=== PATIENT | male | born 1955 | race Caucasian/White ===

== ENCOUNTER 2019-12-22 00:49 | Outpatient (CLI) | payer BC, SELFPAY ==
[2019-12-22 17:37] LABS: SARS-CoV-2 RNA PCR Negative
== END 2019-12-22 00:50 | disposition home or self-care (01) ==
LOC: ANHCOVIDDT 00:49
PROVIDERS: PCP Family Medicine; Visit Provider Internal Medicine Gastroenterology
DX: Z01.812 Encounter for preprocedural laboratory examination (principal); Z20.828 Contact with and (suspected) exposure to other viral communicable diseases
CPT/HCPCS: 87635; C9803; U0003

== ENCOUNTER 2019-12-25 00:37 | Day surgery (SDC) | payer BC, SELFPAY ==
[2019-12-18 15:44] VITALS: BMI 32.3
[2019-12-25 07:51] VITALS: BP 149/77; PULSE 70; RESP 24; TEMP 37; O2SAT 98; BMI 32.2
--- NOTE | 2019-12-25 08:05 | WPDANESEPPF ---
Anes - Initial Pre Proc Eval Procedure: Operation Date: 12/25/19 09:00 Proposed Procedures p Esophagogastroduodenoscopy & Screening Colonoscopy - Usman Cannon MD Date/Time: 12/25/19 08:05 Surgeon: Usman Cannon MD Pre Op Diagnosis: GERD, Neoplam Screening Patient Data Age: 64 Gender: M Height: 5 ft 11 in Weight: 104.9 kg Last Vital Signs Temp 37.0 C 12/25/19 07:51 Pulse 70 12/25/19 07:51 Resp 24 H 12/25/19 07:51 BP 149/77 H 12/25/19 07:51 Pulse Ox 98 12/25/19 07:51 Allergies Allergy/AdvReac Type Severity Reaction Status Date / Time levofloxacin Allergy Severe Other Verified 12/25/19 07:49 Penicillins Allergy Severe Swelling Verified 12/25/19 07:49 of Lip/Tongue/Throat tetracycline Allergy Unknown Unknown Verified 12/25/19 07:49 sulfamethoxazole AdvReac Intermediate Abdominal Verified 12/25/19 07:49 [From Pain, Sulfamethoxazole-Trimethoprim] flushing trimethoprim AdvReac Intermediate Abdominal Verified 12/25/19 07:49 [From Pain, Sulfamethoxazole-Trimethoprim] flushing Home Medications Medication Instructions Recorded Confirmed Type albuterol sulfate 90 mcg/actuation 2 inhalation INHALATION Q4-6H PRN 08/06/19 12/19/19 History breath activated powder inhaler bupropion HCl 150 mg 24 hr tablet, 150 mg PO QAM #90 tablet 10/22/19 12/19/19 Rx extended release lisinopril 20 0.5 tablet PO DAILY 11/21/19 12/19/19 History mg-hydrochlorothiazide 25 mg tablet mirabegron 25 mg tablet,extended 25 mg PO DAILY 11/21/19 12/19/19 History release 24 hr peg 3350-electrolytes 236 240 ml PO Q10M #4000 ml 12/11/19 12/19/19 Rx gram-22.74 gram-6.74 gram-5.86 gram solution pantoprazole 40 mg tablet,delayed 40 mg PO QAM #30 tablet 12/19/19 12/19/19 Rx release Patient hx anesthesia problems: none Family hx anesthesia problems: none PMFSH Past Medical History Medical History Colon cancer screening Constipation Dyslipidemia Environmental allergies Epigastric pain Essential (primary) hypertension GERD without esophagitis History of prediabetes Unspecified osteoarthritis, unspecified site Weight loss Surgical History Surgical History No pertinent past surgical history Family History Family History Father Family history of lung cancer Mother Family history of malignant neoplasm of esophagus Social History Social History Smoking status: Never smoker Second hand tobacco smoke exposure: No Alcohol intake: former Substance use: never Substance use type: does not use Living arrangements: with family Gender identity (if verbalized by the patient): Male Spiritual care concerns: No Anes - Eval Final PreProcedure Day of Procedure 12/25/19 08:05 Patient weight: obese Heart: regular rate and rhythm Lungs: clear to auscultation Airway: Mallampati scale class II Neurological: alert and oriented Last oral intake: >/= 8 hours ASA classification: III Emergent: no Anesthetic plan: proceed Anesthesia type and monitoring: general GIVS and standard monitoring Informed Consent: The patient's anesthetic plan and its attendant risks and benefits were discussed with the patient/family/POA. Questions were solicited and answers provided to the satisfaction of the patient/family/POA.
[2019-12-25] MEDS: LACTATED RINGERS 1,000 ML 150 ML IV CONT (08:07)
--- NOTE | 2019-12-25 08:48 | WPDHPUPDATE1 ---
History and Physical Update Update Date/Time: 12/25/19 08:48 History and Physical has been reviewed, including an updated exam of the patient. There are NO changes in the patient's condition. Risks, benefits, and alternatives have been discussed and questions answered. Patient agrees to proceed with procedure.
[2019-12-25 09:44] VITALS: BP 125/71; PULSE 65; RESP 17; O2SAT 100
[2019-12-25 09:54] VITALS: BP 136/89; PULSE 68; RESP 17; O2SAT 100
[2019-12-25 10:04] VITALS: BP 142/70; PULSE 65; RESP 23; O2SAT 100
== END 2019-12-25 10:20 | disposition home or self-care (01) ==
PROVIDERS: PCP Family Medicine; Visit Provider Internal Medicine Gastroenterology
PROC: 0DJ08ZZ Inspection of Upper Intestinal Tract, Via Natural or Artificial Opening Endoscopic (ICD-10-PCS; CPT 43235; principal; 2019-12-25 09:00)
DX: K59.00 Constipation, unspecified (principal); R63.4 Abnormal weight loss; K57.30 Diverticulosis of large intestine without perforation or abscess without bleeding; D12.2 Benign neoplasm of ascending colon; D12.3 Benign neoplasm of transverse colon; D12.0 Benign neoplasm of cecum; K64.8 Other hemorrhoids; K21.9 Gastro-esophageal reflux disease without esophagitis; R10.13 Epigastric pain; I10 Essential (primary) hypertension; E78.5 Hyperlipidemia, unspecified; M19.90 Unspecified osteoarthritis, unspecified site; E66.9 Obesity, unspecified; Z68.32 Body mass index [BMI] 32.0-32.9, adult
CPT/HCPCS: 45385; 43239; 88305; J2704; J7120

== ENCOUNTER 2019-12-29 08:38 | Outpatient (CLI) | payer BC, SELFPAY ==
[2019-12-29 08:57] LABS: Hematocrit 37.3 % (42.0-52.0); Hemoglobin 12.5 g/dL (14.0-18.0); Mean Corpuscular HGB Conc 33.5 g/dl (32-36); Mean Corpuscular Hemoglobin 30.4 pg (26-34); Mean Corpuscular Volume 90.8 fl (80-100); Mean Platelet Volume 8.8 fl (7.4-10.4); Platelet Count Result 192 k/mm3 (150-375); Red Blood Count 4.11 M/mm3 (4.6-6.20); Red Cell Distribution Width 12.8 % (11.5-14.5); White Blood Count 8.8 K/mm3 (4.5-10.0)
[2019-12-29 09:14] LABS: Alanine Aminotransferase 19 U/L (4-50); Alkaline Phosphatase 62 U/L (38-126); Anion Gap 5 mmol/L (8-16); Aspartate Amino Transferase 19 U/L (17-59); Bilirubin,Total 0.8 mg/dL (0.2-1.3); Blood Urea Nitrogen 18 mg/dL (9-20); Calcium 9.9 mg/dL (8.4-10.2); Carbon Dioxide 35 mmol/L (22-30); Chloride 95 mmol/L (98-107); Estimated Glomerular Filt Rate > 60; Glucose 114 mg/dL (75-110); Potassium 4.5 mmol/L (3.4-5.0); Sodium 135 mmol/L (137-145)
== END 2019-12-29 08:39 | disposition home or self-care (01) ==
PROVIDERS: PCP Family Medicine; Visit Provider Internal Medicine Gastroenterology
DX: K59.00 Constipation, unspecified (principal); R10.13 Epigastric pain; R63.4 Abnormal weight loss
CPT/HCPCS: 36415; 80053; 84443; 85027

== ENCOUNTER 2020-01-10 12:44 | Outpatient (CLI) | payer BC, SELFPAY ==
--- NOTE | ~2020-01-10 | CT_ITS ---
EXAMINATION: CT abdomen pelvis w con EXAM DATE: 01/10/2020 13:21 INDICATION: ABNORMAL WEIGHT LOSS R63.4 - Abnormal weight loss TECHNIQUE: Spiral CT of the abdomen and pelvis was performed following intravenous injection of 100 m L Omnipaque 350. Axial, coronal and sagittal images were reviewed. The dose-length product (DLP) fo r this examination was 1304.67 mGy-cm. The exposure was tailored according to patient size (auto mA exposure control), and iterative reconstruction (ASIR) was used as additional dose reduction techniqu e. There is no prior study for comparison. FINDINGS: The liver, spleen, adrenal glands and pancreas are unremarkable. Gallbladder is unremarkab le. No biliary obstruction. Portal and splenic veins are patent. Kidneys enhance symmetrically. T here is no hydronephrosis. There are 3 left calyceal stones measuring up to 8 mm in size. No ureteral stones. The prostate is unremarkable. The bladder is unremarkable. There is no retroperitoneal or pelvic lymphadenopathy. There is moderate scattered arteriosclerotic disease. The appendix is normal. The stomach and small bowel are unremarkable. There is expected amount of c olonic stool. There is mild scattered colonic diverticulosis. There is no adjacent inflammatory ascencio ge to suggest diverticulitis. No free intraperitoneal gas. The heart is normal in size. There are no pericardial or pleural effusions. The lung bases are unremarkable. There are no osteoblastic or osteolytic lesions identified. There is mild to moderate lumbar levoscoliosis. There is a 10 mm cortical based bone lesion near the tip of the right scapula. No other osseous lesions are identified. This may well be a benign lesion s uch as osteochondroma. IMPRESSION: 1. Left nephrolithiasis. 2. Mild colonic diverticulosis. 3. Small right scapular lesion likely benign histology such as osteochondroma. Reviewed, dictated and finalized at location B. ENT EDITOR
== END 2020-01-10 12:45 | disposition home or self-care (01) ==
PROVIDERS: PCP Family Medicine; Visit Provider Internal Medicine Gastroenterology
DX: R63.4 Abnormal weight loss (principal); K59.00 Constipation, unspecified; R10.13 Epigastric pain; N20.0 Calculus of kidney; K57.90 Diverticulosis of intestine, part unspecified, without perforation or abscess without bleeding; M75.91 Shoulder lesion, unspecified, right shoulder
CPT/HCPCS: 74177; Q9967

== ENCOUNTER 2020-07-14 07:25 | Emergency (ER) | payer BC, SELFPAY ==
--- NOTE | ~2020-07-14 | XR_ITS ---
EXAMINATION: XR abdomen/k[facility] 1V DATE: 07/14/2020 10:09 INDICATION: Kidney stone. Left flank pain. TECHNIQUE: A supine view of the abdomen on 2 radiographs was obtained. COMPARISON: CT dated 07/14/2020 FINDINGS: There are 4 stones in the left kidney, the largest in the interpolar region measuring 6 mm and the ot her 3 measuring between 3 mm and 5 mm in the lower pole. 7 x 5 mm stone in the proximal left ureter p rojecting between the L3 and L4 left transverse processes. A couple phleboliths in the left hemipelvi s. No right-sided urolithiasis. No dilated loops of bowel to suggest obstruction. Mild lumbar levosco liosis with moderate to severe spondylosis. IMPRESSION: 1. Left urolithiasis including a 7 x 5 mm stone in the proximal left ureter. Reviewed, dictated and finalized at location A.
--- NOTE | ~2020-07-14 | CT_ITS ---
EXAMINATION: CT abdomen pelvis wo con DATE: 07/14/2020 09:28 INDICATION: Left flank pain. TECHNIQUE: Computed tomography (CT) of the abdomen and pelvis was performed without intravenous contr ast. Automated exposure control and iterative reconstruction technique were employed. The dose-length product was 838.49 mGy-cm. COMPARISON: CT abdomen and pelvis 01/10/2020 FINDINGS: The visualized portions of the lung bases demonstrate mild atelectasis. No pleural effusion . Cardiomegaly is noted. There are coronary artery calcifications. No pericardial effusion. The liver , gallbladder, spleen, pancreas, and adrenal glands are normal. There is a 2 mm stone in right kidney . There is a 9 mm cyst in right kidney. There are 4 stones in left kidney measuring up to 7 mm. There is mild left hydronephrosis. There is a 6 mm stone in proximal left ureter. There is edema around th e left kidney and left ureter. The prostate is mildly enlarged. There is diverticulosis of the colon without evidence of diverticulitis. The appendix is normal. There are no pathologically enlarged lymp h nodes. There is no free intraperitoneal fluid. There is a left inguinal hernia containing fat. Ther e is lumbar levoscoliosis and severe spondylosis. IMPRESSION: 1. 6 mm stone in proximal left ureter with mild left hydronephrosis. 2. Bilateral nonobstructing kidney stones. Reviewed, dictated and finalized at location B.
[2020-07-14 07:31] VITALS: BP 168/65; PULSE 80; RESP 20; TEMP 36.6; O2SAT 97
[2020-07-14 07:54] LABS: Basophils Percent Auto 0.4 % (0.2-1.2); Eosinophils Percent Auto 0.2 % (0-4.4); Hematocrit 39.8 % (42.0-52.0); Hemoglobin 13.4 g/dL (14.0-18.0); Immature Granulocyte Absolute 0.07 K/mm3 (0.00-0.031); Immature Granulocyte Percent A 0.8 % (0-0.5); Lymphocytes Absolute Auto 0.63 K/mm3 (0.9-3.2); Lymphocytes Percent Auto 7.4 % (18.3-44.2); Mean Corpuscular HGB Conc 33.7 g/dl (32-36); Mean Platelet Volume 9.7 fl (7.4-10.4); Monocytes Absolute Auto 0.6 K/mm3 (0.1-0.6); Monocytes Percent Auto 7.1 % (2.6-8.5); Neutrophils Absolute Auto 7.2 K/mm3 (1.3-6.7); Neutrophils Percent Auto 84.1 % (45.5-73.1); Platelet Count Result 159 k/mm3 (150-375); Red Blood Count 4.47 M/mm3 (4.6-6.20); Red Cell Distribution Width 12.8 % (11.5-14.5); White Blood Count 8.6 K/mm3 (4.5-10.0)
[2020-07-14 08:03] LABS: Anion Gap 6 mmol/L (8-16); Blood Urea Nitrogen 22 mg/dL (9-20); Calcium 9.9 mg/dL (8.4-10.2); Carbon Dioxide 31 mmol/L (22-30); Chloride 100 mmol/L (98-107); Estimated CRCL calculation 82 ml/min; Estimated Glomerular Filt Rate > 60; Glucose 151 mg/dL (75-110); Potassium 3.8 mmol/L (3.4-5.0); Sodium 137 mmol/L (137-145)
[2020-07-14] MEDS: MORPHINE SULFATE (*CRX) 4 MG/ML INJ IV PUSH (08:06)
[2020-07-14] MEDS: ONDANSETRON INJ 4 MG/2 ML VIAL IV PUSH (08:06)
[2020-07-14 08:16] LABS: Add Urine Microscopic? YES; Appearance Urine Clear (Clear); Bilirubin Urine Negative (Negative); Blood Urine Negative (Negative); Color Urine Yellow (Yellow); Glucose Urine UA Negative (Negative); Ketones Urine Negative (Negative); Leukocyte Esterase Ur Negative LEU/UL (Negative); Mucus Urine Rare /lpf; Nitrate Urine Negative (Negative); Protein Urine Negative (Negative); Specific Grav Ur 1.024 (1.001-1.035); WBC Urine 0-3 /hpf
--- NOTE | 2020-07-14 08:46 | ED.GENADULT ---
HPI - General Adult General Chief complaint: Abdominal Pain Stated complaint: left flank, LLQ pain Time Seen by Provider: 07/14/20 07:34 History of Present Illness HPI narrative: Patient is a 65-year-old male who presents ER with left flank pain. Onset yesterday and radiating into the left lower quadrant today. Associated with waves of nausea. No aggravating or alleviating factors. Does have increased urinary frequency. No hematuria or dysuria. Denies any diarrhea. No history of diverticulitis but does have known diverticulosis. No history of stones. Related Data Home Medications Medication Instructions Recorded Confirmed lisinopril 20 0.5 tablet PO DAILY 11/21/19 04/08/20 mg-hydrochlorothiazide 25 mg tablet lorazepam 0.5 mg tablet 0.5 mg PO DAILY PRN 02/21/20 04/08/20 buspirone 15 mg tablet 15 mg PO TID tablet 04/08/20 04/08/20 Allergies Allergy/AdvReac Type Severity Reaction Status Date / Time levofloxacin Allergy Severe Other Verified 07/14/20 07:35 Penicillins Allergy Severe Swelling Verified 07/14/20 07:35 of Lip/Tongue/Throat tetracycline Allergy Unknown Unknown Verified 07/14/20 07:35 sulfamethoxazole AdvReac Intermediate Abdominal Verified 07/14/20 07:35 [From Pain, Sulfamethoxazole-Trimethoprim] flushing trimethoprim AdvReac Intermediate Abdominal Verified 07/14/20 07:35 [From Pain, Sulfamethoxazole-Trimethoprim] flushing Review of Systems Review of Systems: All systems reviewed & are unremarkable except as noted in HPI and below Constitutional: Constitutional: Denies chills, Denies fever(s) and Denies weakness Gastrointestinal: Gastrointestinal: Reports abdominal pain, Denies diarrhea, Reports nausea and Denies vomiting Genitourinary: Genitourinary: Denies hematuria, Denies oliguria, Denies dysuria and Reports urinary frequency PMFSH Past Medical History Medical History Adenomatous colon polyp Colon cancer screening Constipation Dyslipidemia Environmental allergies Epigastric pain Essential (primary) hypertension GERD without esophagitis History of prediabetes Irritable bowel syndrome with constipation Nausea Unspecified osteoarthritis, unspecified site Weight loss Surgical History Surgical History No pertinent past surgical history Family History Family History Father Family history of lung cancer Mother Family history of malignant neoplasm of esophagus Social History Social History Smoking status: Never smoker Second hand tobacco smoke exposure: No Alcohol intake: former Substance use: never Substance use type: does not use Gender identity (if verbalized by the patient): Male Spiritual care concerns: No Exam Narrative: Exam Narrative: GENERAL: Well-appearing, well-nourished, and in no acute distress. HEAD: Normocephalic, atraumatic. CHEST: Clear to auscultation. No respiratory distress. HEART: Regular rate and rhythm. Normal peripheral pulses. ABDOMEN: Soft, mild left lower quadrant tenderness, nondistended, no CVA tenderness. EXTREMITIES: Normal range of motion. No edema. SKIN: Warm, dry, no rash. NEURO: Alert and oriented x3. PSYCH: Normal mood and affect. Course Course Emergency Course: Patient informed results. Urology consulted. They will see him this week and potentially arrange lithotripsy on Tuesday. Patient is to avoid NSAIDs and he has been instructed on which medications to avoid. Vital Signs Vital signs: Vital Signs Temperature 97.9 F 07/14/20 07:31 Pulse Rate 80 07/14/20 07:31 Respiratory Rate 20 07/14/20 07:31 Blood Pressure 168/65 H 07/14/20 07:31 Pulse Oximetry 97 07/14/20 07:31 Temperature 97.9 F 07/14/20 07:31 Pulse Rate 73 07/14/20 09:36 Respiratory Rate
[2020-07-14 09:36] VITALS: BP 168/75; PULSE 73; RESP 16; O2SAT 98
[2020-07-14] MEDS: HYDROcodone/acetaminophen (*CRX) 5-325 MG TABLET 1 TAB PO (11:23)
== END 2020-07-14 11:43 | disposition home or self-care (01) ==
PROVIDERS: Emergency Provider Emergency Medicine; PCP Family Medicine
DX: N13.2 Hydronephrosis with renal and ureteral calculous obstruction (principal); Z86.010 Personal history of colon polyps; E78.5 Hyperlipidemia, unspecified; K58.1 Irritable bowel syndrome with constipation; M19.90 Unspecified osteoarthritis, unspecified site
CPT/HCPCS: 36415; 74018; 74176; 80048; 81001; 85025; 87086; 96374; 96375; 99284; A9270; J2270; J2405

== ENCOUNTER → 2020-07-15 01:47 | Outpatient (CLI) | payer BC, SELFPAY ==
[2020-07-15 18:55] LABS: SARS-CoV-2 RNA PCR Negative
== END ==
PROVIDERS: PCP Family Medicine; Visit Provider Urology
DX: Z01.812 Encounter for preprocedural laboratory examination (principal); Z20.822 Contact with and (suspected) exposure to COVID-19
CPT/HCPCS: C9803; U0003; U0005

== ENCOUNTER 2020-07-15 08:34 | Outpatient (CLI) | payer BC, SELFPAY ==
--- NOTE | 2020-07-15 08:56 | ECG_ITS ---
Measurements Intervals [place] Rate: 63 P: 19 [place]: 165 QRS: 8 QRSD: 96 T: 3 QT: 415 QTc: 427 Interpretive Statements SINUS RHYTHM ATRIAL PREMATURE COMPLEX MINIMAL Q WAVES- HIGH LATERAL LEADS BORDERLINE T WAVE ABNORMALITY- ANTEROLAT/INF LEADS BASELINE ARTIFACT- I, II, III, AVR, AVL, AVF BORDERLINE ECG Electronically Signed On 07-15-2020 9:28:18 CDT by Milton Santiago D.O.
[2020-07-15 09:27] LABS: INR 1.2; Prothrombin Time 15.5 Seconds (11.1-14.7)
[2020-07-15 09:28] LABS: Partial Thromboplastin Time 28.7 SECONDS (22.3-36.8)
== END 2020-07-15 08:35 | disposition home or self-care (01) ==
LOC: ANHSURGERY 08:38
PROVIDERS: PCP Family Medicine; Visit Provider Urology
DX: Z01.818 Encounter for other preprocedural examination (principal); N20.0 Calculus of kidney; I10 Essential (primary) hypertension
CPT/HCPCS: 36415; 85610; 85730; 93005

== ENCOUNTER 2020-07-18 05:45 | Day surgery (SDC) | payer BC, SELFPAY ==
[2020-07-14 16:54] VITALS: BMI 32.1
[2020-07-18] VITALS (7 sets, daily range): BP systolic 122–165; BP diastolic 60–75; PULSE 56–74; RESP 16–20; TEMP 36.4–36.8; O2SAT 94–100
--- NOTE | ~2020-07-18 | XR_ITS ---
EXAMINATION: XR abdomen/kub 1V DATE: 07/18/2020 08:50 INDICATION: Left nephrolithiasis for planned lithotripsy. TECHNIQUE: A supine view of the abdomen on 2 radiographs was obtained. COMPARISON: CT and [facility] dated 07/14/2020 FINDINGS: There are 3 stones at the lower pole of the left kidney the largest measuring 405 [address] in maximal diame ter. The 5 mm stone previously seen in the proximal left ureter has advanced, now in the distal left ureter projecting over some atherosclerotic calcifications in the iliac arteries and over the lateral margin of the sacrum. Several phleboliths in the pelvis. Mild left levoscoliosis with moderate spond ylosis. Normal bowel gas pattern. IMPRESSION: 1. Left urolithiasis with interval advancement of a 5 mm stone on the distal left ureter. Reviewed, dictated and finalized at location A. IMPRESSION: 1. Left urolithiasis with interval advancement of a 5 mm stone on the distal le ft ureter.
--- NOTE | 2020-07-18 09:30 | WPDANESEPPF ---
Anes - Initial Pre Proc Eval Procedure: Operation Date: 07/18/20 10:30 Proposed Procedures p Left Extracorporeal Shock Wave Lithotripsy - Esvin Hawthorne MD Date/Time: 07/18/20 09:30 Surgeon: Esvin Hawthorne MD Pre Op Diagnosis: Ureteral/Renal Stone Patient Data Age: 65 Gender: M Height: 5 ft 11 in Weight: 109.5 kg Allergies Allergy/AdvReac Type Severity Reaction Status Date / Time Penicillins Allergy Severe Swelling Verified 07/14/20 16:39 of Lip/Tongue/Throat tetracycline Allergy Unknown Unknown Verified 07/14/20 16:39 sulfamethoxazole AdvReac Intermediate Abdominal Verified 07/14/20 16:39 [From Pain, Sulfamethoxazole-Trimethoprim] flushing trimethoprim AdvReac Intermediate Abdominal Verified 07/14/20 16:39 [From Pain, Sulfamethoxazole-Trimethoprim] flushing levofloxacin AdvReac Mild legs Verified 07/18/20 09:09 burning Home Medications Medication Instructions Recorded Confirmed Type lisinopril 20 0.5 tablet PO DAILY 11/21/19 07/18/20 History mg-hydrochlorothiazide 25 mg tablet lorazepam 0.5 mg tablet 0.25 mg PO BID PRN 02/21/20 07/18/20 History pantoprazole 40 mg tablet,delayed 40 mg PO QAM #30 tablet 02/21/20 07/18/20 Rx release buspirone 15 mg tablet 15 mg PO TID tablet 04/08/20 07/18/20 History acetaminophen [Tylenol Extra 1,000 mg PO Q6H PRN 07/14/20 07/18/20 History Strength] hydrocodone-acetaminophen 1 tablet PO Q6H PRN #20 tablet 07/14/20 07/18/20 Rx ondansetron 4 mg PO Q6H PRN #10 tablet 07/14/20 07/18/20 Rx sertraline 50 mg PO DAILY 07/14/20 07/18/20 History tamsulosin 0.4 mg PO HS 07/14/20 07/18/20 History Patient hx anesthesia problems: none Family hx anesthesia problems: none PMFSH Past Medical History Medical History Adenomatous colon polyp Colon cancer screening Constipation Dyslipidemia Environmental allergies Epigastric pain Essential (primary) hypertension GERD without esophagitis History of prediabetes Irritable bowel syndrome with constipation Nausea Unspecified osteoarthritis, unspecified site Weight loss Surgical History Surgical History No pertinent past surgical history Family History Family History Father Family history of lung cancer Mother Family history of malignant neoplasm of esophagus Social History Social History Smoking status: Never smoker Second hand tobacco smoke exposure: No Alcohol intake: never Substance use: never Substance use type: does not use Living arrangements: with family Gender identity (if verbalized by the patient): Male Spiritual care concerns: No Anes - Eval Final PreProcedure Day of Procedure 07/18/20 09:30 Patient weight: obese Heart: regular rate and rhythm Lungs: clear to auscultation Airway: Mallampati scale class II Neurological: alert and oriented Last oral intake: >/= 8 hours ASA classification: III Emergent: no Anesthetic plan: proceed Anesthesia type and monitoring: general LMA and standard monitoring Informed Consent: The patient's anesthetic plan and its attendant risks and benefits were discussed with the patient/family/POA. Questions were solicited and answers provided to the satisfaction of the patient/family/POA.
[2020-07-18] MEDS: LACTATED RINGERS 1,000 ML 30 ML IV CONT (09:34)
--- NOTE | 2020-07-18 09:40 | WPDHPUPDATE1 ---
History and Physical Update Update Date/Time: 07/18/20 09:40 History and Physical has been reviewed, including an updated exam of the patient. There are NO changes in the patient's condition. Risks, benefits, and alternatives have been discussed and questions answered. Patient agrees to proceed with procedure.
[2020-07-18] MEDS: AZTREONAM 1 GM in DEXTROSE 5% IN WATER 50 ML 100 ML IVPB (10:27)
[2020-07-18 10:29] LABS: INR 1.1; Prothrombin Time 15.2 Seconds (11.1-14.7)
--- NOTE | 2020-07-18 10:34 | SUR.PREOP ---
dr carlton aware pt pending,lab called for redraw.1000 redrew pt,dr carlton okayed pt to transport to or with lab pending.
--- NOTE | 2020-07-18 11:10 | PM.PROC ---
Procedure Note - Detailed Date of procedure: 07/18/20 Pre-op diagnosis: Ureteral/Renal Stone Post-op diagnosis: same Procedure performed: Lithotripsy of left ureteral calculus Description of procedure: Patient is taken the operative suite correctly identified. The stones migrated to the distal left ureter. It was visualized in both planes. Three thousand shocks were given to the stone. Patient tolerated procedure well without any complications and was taken recovery stable condition. He will follow up in 7-10 days with [facility]. Anesthesia: GLMA Surgeon: Esvin Hawthorne MD Drains: No Packing: No Pathology: none sent Complications: No immediate complications Condition: stable Disposition: PACU
== END 2020-07-18 12:43 | disposition home or self-care (01) ==
PROVIDERS: PCP Family Medicine; Visit Provider Urology
PROC: (CPT 50590; principal; 2020-07-18 10:30)
DX: N20.2 Calculus of kidney with calculus of ureter (principal); E78.5 Hyperlipidemia, unspecified; I10 Essential (primary) hypertension; K21.9 Gastro-esophageal reflux disease without esophagitis; R73.03 Prediabetes; K58.1 Irritable bowel syndrome with constipation; M19.90 Unspecified osteoarthritis, unspecified site; E66.9 Obesity, unspecified; Z68.33 Body mass index [BMI] 33.0-33.9, adult
CPT/HCPCS: 50590; 36415; 74018; 85610; J2250; J2405; J2704; J3010; J7120

== ENCOUNTER 2020-07-30 07:07 | Outpatient (CLI) | payer BC, SELFPAY ==
--- NOTE | ~2020-07-30 | XR_ITS ---
EXAMINATION: XR abdomen/kub 1V INDICATION: Left ureteral stone TECHNIQUE: Supine views of the abdomen were obtained on 2 radiographs. COMPARISON: 07/08/2020 FINDINGS: The previously described stone at the left ureterovesicular junction is no longer identifie d, consistent with interval lithotripsy. There are phleboliths of the left pelvis. Stones in the lowe r pole of the left kidney measure up to 3 mm. The bowel gas pattern is normal. There is elevation of the right hemidiaphragm. No dilated loops of bowel are seen. IMPRESSION: 1. Interval treatment of the previously described left distal ureteral stone. 2. Left nephrolithiasis. Reviewed, dictated and finalized at location A.
== END 2020-07-30 07:08 | disposition home or self-care (01) ==
PROVIDERS: PCP Family Medicine; Visit Provider Nurse Practitioner Adult Health
DX: N20.1 Calculus of ureter (principal)
CPT/HCPCS: 74018

== ENCOUNTER 2021-11-15 14:53 | Emergency (ER) | payer OTHER, BC, SELFPAY ==
--- NOTE | ~2021-11-15 | XR_ITS ---
EXAM: XR wrist RT min 3V, XR forearm RT 2V DATE: 11/15/2021 16:02 HISTORY: Right wrist pain . Forearm pain, injury. COMPARISON: None available. FINDINGS: Normal mineralization. Nondisplaced right radial styloid fracture. Impacted right radial h ead fracture. No lytic or blastic lesion. Scattered degenerative change. No erosion or periosteal yuliana nge. Soft tissues within normal limits. IMPRESSION: Nondisplaced right radial styloid fracture. Impacted right radial head fracture. Reviewed, dictated and finalized at location K. IMPRESSION: Nondisplaced right radial styloid fracture. Impacted right radial h ead fracture.
--- NOTE | ~2021-11-15 | CT_ITS ---
EXAMINATION: CT facial bones wo con DATE: 11/15/2021 17:25 INDICATION: head injury . TECHNIQUE: Computed tomography (CT) of the facial bones and maxillofacial region was performed withou t intravenous contrast. Automated exposure control and iterative reconstruction technique were employ ed. The dose-length product was 282.77 mGy-cm. COMPARISON: None. FINDINGS: Soft Tissues: Right frontal and right periorbital swelling, without post septal extension. Facial bones: No acute fracture. No lytic or blastic process. Eyes: The globes are intact. The soft tissue planes of the orbits are maintained. Paranasal Sinuses: Mild ethmoid mucosal thickening, remaining aerated spaces are clear. Foreign Bodies: No radiopaque foreign bodies. Other Findings: None. IMPRESSION: No evidence of acute facial bone fracture. Reviewed, dictated and finalized at location K.
--- NOTE | ~2021-11-15 | CT_ITS ---
EXAMINATION: CT brain wo con DATE: 11/15/2021 17:25 INDICATION: head injury . TECHNIQUE: Computed tomography (CT) of the head was performed without intravenous contrast. The mA wa s adjusted according to patient size. Iterative reconstruction technique was employed. The dose-lengt h product was 605.33 mGy-cm. COMPARISON: None FINDINGS: No acute intracranial hemorrhage or extra-axial fluid collection. No hydrocephalus, mass, or herniation. No acute ischemic infarct. Unremarkable dural venous sinus attenuation. No acute osseous abnormality. Right frontal and right orbital swelling. The aerated spaces are clear. Mild atrophy and chronic white matter change. Atherosclerotic intracranial calcifications. IMPRESSION: No acute intracranial process. Reviewed, dictated and finalized at location K.
--- NOTE | ~2021-11-15 | CT_ITS ---
EXAMINATION: CT diagnostic chest wo con DATE: 11/15/2021 17:25 INDICATION: right sided rib pain, shortness of breath, fall . TECHNIQUE: Computed tomography (CT) of the chest was performed with 100 mL Omnipaque-350 intravenous contrast. Automated exposure control and iterative reconstruction technique were employed. The dose-l ength product was 921.44 mGy-cm. COMPARISON: X-ray RIBS, same date FINDINGS: CHEST: No thoracic aortic injury. Mild arch calcification and ectasia. No mediastinal hematoma. No pericardial effusion. Severe coronary artery calcification No acute lung injury. No pleural effusion or pneumothorax. The prior radiograph findings are related to right hemidiaphragm elevation and extrapleural fat. Upper abdomen: No significant finding. MUSCULOSKELETAL: No acute fracture. No fracture or traumatic malalignment of the thoracic spine. IMPRESSION: No acute process detected in the chest. Reviewed, dictated and finalized at location K.
--- NOTE | ~2021-11-15 | XR_ITS ---
EXAM: XR ribs RT 2V w CXR 2V DATE: 11/15/2021 16:02 HISTORY: right sided rib pain, fall . COMPARISON: None available. FINDINGS: Low lung volumes. Bibasilar atelectasis. Mild right lateral costophrenic angle blunting Nor mal mineralization. Cortical step-off at the anterior right sixth rib. No lytic or blastic lesion. Génesis int spaces are maintained. No erosion or periosteal change. Soft tissues within normal limits. IMPRESSION: Possible anterior right sixth rib fracture, correlate with point tenderness. Right latera l pleural scarring versus small pleural fluid collection, which may represent a small hemothorax in t he setting of trauma. Bibasilar scar/atelectasis. Reviewed, dictated and finalized at location K. IMPRESSION: Possible anterior right sixth rib fracture, correlate with point te nderness. Right lateral pleural scarring versus small pleural fluid collection, which may represent a small hemothorax in the setting of trauma. Bibasilar sca r/atelectasis.
[2021-11-15 15:08] VITALS: BP 170/88; PULSE 84; RESP 18; TEMP 36.5; O2SAT 96
--- NOTE | 2021-11-15 15:31 | ED.HEATRA ---
HPI - Head Injury General Chief complaint: Head Injury Stated complaint: Fall, head laceration Time Seen by Provider: 11/15/21 15:00 Source: patient Mode of arrival: ambulatory Limitations: no limitations History of Present Illness HPI Narrative: This is a 66 year old male that presents to the ER after a fall sustained a couple of hours ago. Reports he tripped while walking and fell forward. Reports hitting his head. Denies loss of consciousness. Reports a black eye. Reports lacerations to his forehead and nose. Reports right-sided rib pain and right arm pain. He is not up-to-date on tetanus. Denies vision changes, vomiting, numbness, or weakness. Related Data Home Medications Medication Instructions Recorded Confirmed lorazepam 0.5 mg tablet 0.25 mg PO BID PRN anxiety 02/21/20 11/12/21 buspirone 15 mg tablet 15 mg PO TID 04/08/20 11/12/21 sertraline 50 mg tablet 50 mg PO DAILY 07/14/20 11/12/21 Allergies Allergy/AdvReac Type Severity Reaction Status Date / Time Penicillins Allergy Severe Swelling Verified 11/12/21 10:00 of Lip/Tongue/Throat tetracycline Allergy Unknown Unknown Verified 11/12/21 10:00 sulfamethoxazole AdvReac Intermediate Abdominal Verified 11/12/21 10:00 [From Pain, Sulfamethoxazole-Trimethoprim] flushing trimethoprim AdvReac Intermediate Abdominal Verified 11/12/21 10:00 [From Pain, Sulfamethoxazole-Trimethoprim] flushing levofloxacin AdvReac Mild legs Verified 11/12/21 10:00 burning Review of Systems Review of Systems: CONSTITUTIONAL: Denies fever EYES: Denies visual changes GASTROINTESTINAL: Denies vomiting MUSCULOSKELETAL: Denies back pain NEUROLOGIC: Denies numbness, or weakness. All systems reviewed & are unremarkable except as noted in HPI and below PMFSH Past Medical History Medical History (Updated 11/15/21 @ 18:04 by Carito Barbosa PA-C) Adenomatous colon polyp Colon cancer screening Constipation Dyslipidemia Environmental allergies Epigastric pain Essential (primary) hypertension GERD without esophagitis History of prediabetes Intermittent asthma Irritable bowel syndrome with constipation Nausea Prediabetes Unspecified osteoarthritis, unspecified site Weight loss Surgical History Surgical History No pertinent past surgical history Family History Family History Father Family history of lung cancer Mother Family history of malignant neoplasm of esophagus Social History Social History (Updated 11/12/21 @ 10:00 by Annie Harrison [facility]) Smoking status: Never smoker Second hand tobacco smoke exposure: No Alcohol intake: never Substance use: never Substance use type: does not use Gender identity (if verbalized by the patient): Male Sexual Orientation (if Verbalized by the Patient): Straight or Heterosexual Spiritual care concerns: No Agree to blood products: Yes Exam Narrative: GENERAL: Well-appearing, well-nourished, and in no acute distress. HEAD: Normocephalic. Right sided upper eyelid ecchymosis. 1.5 cm linear superficial laceration over the right side of the forehead EYES: PERRLA and EOMI. ENT: Nares clear, no rhinorrhea or epistaxis. Superficial skin tear to the brisge of the nose. Mucous membranes moist. Oropharynx without tonsillar hypertrophy exudate or other lesions. Bilateral TMs pearly joy non-bulging NECK: Supple. No adenopathy or masses. No midline cervical spine tenderness CHEST: Clear to auscultation. No respiratory distress. No wheezes rales or rhonchi HEART: Regular rate and rhythm. No murmur heard. Normal peripheral pulses. BACK: No midline thoracic or lumbar spine tenderness EXTREMITIES: Normal range of motion. No edema or obvious deformity SKIN: Warm, dry, no rash. NEURO: No focal deficits. Alert and oriented x3. Cranial nerves II through XII grossly intact PSYCH: Normal mood and a
[2021-11-15] MEDS: ACETAMINOPHEN 500 MG TABLET 1000 MG PO (16:17)
[2021-11-15 17:05] LABS: Basophils Percent Auto 0.4 % (0.2-1.2); Eosinophils Absolute Auto 0.1 K/mm3 (0-0.3); Eosinophils Percent Auto 0.5 % (0-4.4); Hematocrit 41.2 % (42.0-52.0); Hemoglobin 13.8 g/dL (14.0-18.0); Immature Granulocyte Absolute 0.06 K/mm3 (0.00-0.031); Immature Granulocyte Percent A 0.5 % (0-0.5); Lymphocytes Absolute Auto 1.33 K/mm3 (0.9-3.2); Mean Corpuscular HGB Conc 33.5 g/dl (32-36); Mean Corpuscular Hemoglobin 29.7 pg (26-34); Mean Corpuscular Volume 88.8 fl (80-100); Mean Platelet Volume 9.4 fl (7.4-10.4); Monocytes Percent Auto 9.4 % (2.6-8.5); Neutrophils Absolute Auto 8.6 K/mm3 (1.3-6.7); Neutrophils Percent Auto 77.2 % (45.5-73.1); Platelet Count Result 182 k/mm3 (150-375); Red Blood Count 4.64 M/mm3 (4.6-6.20); Red Cell Distribution Width 12.7 % (11.5-14.5); White Blood Count 11.1 K/mm3 (4.5-10.0)
[2021-11-15 17:16] LABS: Alanine Aminotransferase 27 U/L (6-50); Albumin Level 4.2 g/dL (3.5-5.1); Alkaline Phosphatase 79 U/L (38-126); Anion Gap 10 mmol/L (8-16); Aspartate Amino Transferase 24 U/L (17-59); Bilirubin,Total 0.5 mg/dL (0.2-1.3); Blood Urea Nitrogen 26 mg/dL (9-20); Calcium 9.3 mg/dL (8.4-10.2); Carbon Dioxide 26 mmol/L (22-30); Chloride 103 mmol/L (98-107); Estimated CRCL calculation 89 ml/min; Estimated Glomerular Filt Rate > 60; Glucose 128 mg/dL (65-110); INR 1.1; Potassium 3.6 mmol/L (3.4-5.0); Sodium 139 mmol/L (137-145)
[2021-11-15 17:17] LABS: Partial Thromboplastin Time 26.5 SECONDS (22.3-36.8)
[2021-11-15] MEDS: TETANUS,DIPHTHERIA,AC PERTUSSIS ADULT (0.5 ML) BOOSTRIX IM (18:16)
[2021-11-15 18:25] VITALS: BP 165/87; PULSE 78; RESP 18; O2SAT 98
== END 2021-11-15 18:27 | disposition home or self-care (01) ==
PROVIDERS: Physician Assistant; Emergency Provider Emergency Medicine; PCP Family Medicine
DX: S01.81XA Laceration without foreign body of other part of head, initial encounter (principal); S52.514A Nondisplaced fracture of right radial styloid process, initial encounter for closed fracture; S52.121A Displaced fracture of head of right radius, initial encounter for closed fracture; S20.211A Contusion of right front wall of thorax, initial encounter; S00.11XA Contusion of right eyelid and periocular area, initial encounter; Z23 Encounter for immunization; E78.5 Hyperlipidemia, unspecified; I10 Essential (primary) hypertension; R73.03 Prediabetes; J45.20 Mild intermittent asthma, uncomplicated; K21.9 Gastro-esophageal reflux disease without esophagitis; K58.1 Irritable bowel syndrome with constipation; Z86.010 Personal history of colon polyps; W01.0XXA Fall on same level from slipping, tripping and stumbling without subsequent striking against object, initial encounter
CPT/HCPCS: 12011; 29125; 36415; 70450; 70486; 71046; 71100; 71250; 73090; 73110; 80053; 85025; 85610; 85730; 90471; 90715; 99284; A4565; A9270

== ENCOUNTER 2023-01-23 08:30 | Emergency (ER) | payer BC, SELFPAY ==
[2023-01-23 08:47] VITALS: BP 179/65; PULSE 73; RESP 16; TEMP 37.7; O2SAT 96
[2023-01-23 08:48] VITALS: BP 179/65; PULSE 73; RESP 16; TEMP 37.7; O2SAT 96
--- NOTE | 2023-01-23 09:26 | ED.GENADULT ---
HPI - General Adult General Chief complaint: Upper Respiratory Infection Stated complaint: pressure in head , weak, hard to breathe Source: patient Mode of arrival: ambulatory Limitations: no limitations History of Present Illness HPI narrative: Patient presents for evaluation of sick symptoms for last 4 days. Symptoms include frontal headache, clear rhinorrhea, generalized body aches. He has chronic shortness of breath secondary to COPD. Current shortness of breath is not worse than his baseline. He denies any fever, chills, sore throat, otalgia, significant cough. He has tried tylenol and ibuprofen for his symptoms. He does not smoke. No recent sick contacts to his knowledge. Related Data Home Medications Medication Instructions Recorded Confirmed lorazepam 0.5 mg tablet 0.25 mg PO BID PRN anxiety 02/21/20 01/23/23 buspirone 15 mg tablet 15 mg PO TID 04/08/20 01/23/23 sertraline 50 mg tablet 50 mg PO DAILY 07/14/20 01/23/23 Allergies Allergy/AdvReac Type Severity Reaction Status Date / Time Penicillins Allergy Severe Swelling Verified 01/23/23 08:45 of Lip/Tongue/Throat tetracycline Allergy Unknown Unknown Verified 01/23/23 08:45 sulfamethoxazole AdvReac Intermediate Abdominal Verified 01/23/23 08:45 [From Pain, Sulfamethoxazole-Trimethoprim] flushing trimethoprim AdvReac Intermediate Abdominal Verified 01/23/23 08:45 [From Pain, Sulfamethoxazole-Trimethoprim] flushing levofloxacin AdvReac Mild legs Verified 01/23/23 08:45 burning Review of Systems Review of Systems: CONSTITUTIONAL: Denies fever, chills, or sweats. EYES: Denies visual changes, redness, or discharge. ENT: Denies rhinorrhea, congestion, sore throat, or otalgia. CARDIOVASCULAR: Denies chest pain, palpitations, or edema. RESPIRATORY: Reports chronic shortness of breath, current symptoms are unchanged from baseline. Denies cough GASTROINTESTINAL: Denies abdominal pain, nausea, vomiting, or diarrhea. GENITOURINARY: Denies dysuria or hematuria. SKIN: Denies rash or itching. MUSCULOSKELETAL:Reports generalized body aches NEUROLOGIC: Reports headache. Denies numbness, dizziness, or weakness. PSYCHIATRIC: Denies anxiety or depression. [facility] Past Medical History Medical History Adenomatous colon polyp Colon cancer screening Constipation Dyslipidemia Environmental allergies Epigastric pain Essential (primary) hypertension GERD without esophagitis History of prediabetes Intermittent asthma Irritable bowel syndrome with constipation Nausea Prediabetes Unspecified osteoarthritis, unspecified site Weight loss Surgical History Surgical History No pertinent past surgical history Family History Family History Father Family history of lung cancer Mother Family history of malignant neoplasm of esophagus Social History Social History Smoking status: Never smoker Second hand tobacco smoke exposure: No Alcohol intake: never Substance use: never Substance use type: does not use Lack of Transportation: No Lack of Food: Never True Current Housing: I Have Housing Concerned About Future Housing: No Difficulty Paying Gas/Electric Bills: No Difficulty Paying for Meds: No Currently Unemployed: No Education: Trade/Vocational Certificate Difficulty w/ Childcare or Family Care: No Living arrangements: with family Occupation/Education: occupation Gender identity (if verbalized by the patient): Male Sexual Orientation (if Verbalized by the Patient): Straight or Heterosexual Spiritual care concerns: No Agree to blood products: Yes Exam Narrative: GENERAL: Well-appearing, well-nourished, and in no acute distress. HEAD: Normocephali
== END 2023-01-23 09:48 | disposition home or self-care (01) ==
PROVIDERS: Emergency Provider Nurse Practitioner; PCP Family Medicine
DX: B34.9 Viral infection, unspecified (principal); Z20.822 Contact with and (suspected) exposure to COVID-19; E78.5 Hyperlipidemia, unspecified; I10 Essential (primary) hypertension; K21.9 Gastro-esophageal reflux disease without esophagitis; R73.03 Prediabetes; J44.9 Chronic obstructive pulmonary disease, unspecified; M19.90 Unspecified osteoarthritis, unspecified site
CPT/HCPCS: 87426; 87804; 99213; C9803; G0463

== ENCOUNTER 2023-01-31 10:38 | Inpatient (IN) | payer BC, SELFPAY ==
[2023-01-31] VITALS (34 sets, daily range): BP systolic 170–216; BP diastolic 79–93; PULSE 69–89; RESP 14–30; TEMP 36.6–36.7; O2SAT 88–99; BMI 39.3
--- NOTE | ~2023-01-31 | XR_ITS ---
XR chest 2V 01/31/2023 11:34 Indication: Shortness of breath with exertion Procedure: PA and lateral views of the chest Comparison: 11/15/2021 Findings: Borderline heart size. Bibasilar airspace disease. Bilateral perihilar infiltrates with per ibronchial thickening. Small pleural effusions. No pneumothorax. Impression: 1: Bilateral perihilar and basilar airspace disease which may represent edema or pneumonia. 2: Small pleural effusions. Reviewed, dictated and finalized at location B. ER CUTTER Impression: 1: Bilateral perihilar and basilar airspace disease which may represent edema o r pneumonia. 2: Small pleural effusions.
--- NOTE | ~2023-01-31 | US_ITS ---
EXAMINATION:US venous doppler LE BI INDICATION:Leg swelling TECHNIQUE: Multiple grayscale, color flow and Doppler images of the right and left lower extremity de ep venous systems were obtained and reviewed. COMPARISON:No prior studies for comparison. FINDINGS: The common femoral, superficial femoral and popliteal veins demonstrate normal respiratory variation, augmentation and compressibility. Color flow is also seen within the posterior tibial, gr eater saphenous and profunda veins. The peroneal veins are not adequately visualized due to leg swell ing. IMPRESSION: 1: No lower extremity deep venous thrombosis. Reviewed, dictated and finalized at location B. R STRIPPER
--- NOTE | ~2023-01-31 | CT_ITS ---
Clinical Indication: Shortness of breath CT Scan of the Chest with Contrast: Technique: Contiguous sections were acquired throughout the chest after intravenous administration of 100 cc of Omnipaque 350. Dose reduction technique was used on this scan by utilizing automated expos ure control and iterative reconstruction technique. The dose-length product (DLP) was 1089.17 mGy-cm. COMPARISON: 11/15/2021 Findings: There is no evidence of any significant mediastinal, hilar or axillary lymphadenopathy. There is no f illing defect in the pulmonary arterial tree to suggest pulmonary embolus. There is no evidence of ao rtic dissection or aneurysm. There is no evidence of pleural or pericardial effusion. The lungs are clear. No pulmonary nodules or infiltrates are noted. Images through the upper abdomen reveal no abnormalities. Impression: No evidence of pulmonary embolus, aortic dissection, or aortic aneurysm. Clear lungs. Reviewed, dictated and finalized at [facility]. SPORT RN Impression: No evidence of pulmonary embolus, aortic dissection, or aortic aneurysm. Clear lungs.
--- NOTE | 2023-01-31 10:46 | ECG_ITS ---
Measurements Intervals [place] Rate: 69 P: 14 AL: 178 QRS: 1 QRSD: 85 T: -8 QT: 392 QTc: 422 Interpretive Statements SINUS RHYTHM LOW QRS VOLTAGE IN PRECORDIAL LEADS VOLTAGE CRITERIA FOR LVH MINIMAL Q WAVES- HIGH LATERAL LEADS NONSPECIFIC ST & T-WAVE ABNORMALITY-DIFFUSE LEADS BASELINE ARTIFACT- I, III, AVL, V6 BORDERLINE ECG COMPARED TO ECG 07/15/2020 09:05:58 NO SIGNIFICANT CHANGES Electronically Signed On 01-31-2023 14:41:23 EDITORIAL INTERN by Milton Santiago D.O.
[2023-01-31 11:16] LABS: Basophils Absolute Auto 0.1 K/mm3 (0.0-0.1); Basophils Percent Auto 0.6 % (0.2-1.2); Eosinophils Absolute Auto 0.1 K/mm3 (0-0.3); Eosinophils Percent Auto 1.1 % (0-4.4); Hematocrit 41.1 % (42.0-52.0); Hemoglobin 13.1 g/dL (14.0-18.0); Immature Granulocyte Absolute 0.07 K/mm3 (0.00-0.031); Immature Granulocyte Percent A 0.8 % (0-0.5); Lymphocytes Absolute Auto 1.09 K/mm3 (0.9-3.2); Lymphocytes Percent Auto 12.5 % (18.3-44.2); Mean Corpuscular HGB Conc 31.9 g/dl (32-36); Mean Corpuscular Hemoglobin 28.7 pg (26-34); Mean Corpuscular Volume 89.9 fl (80-100); Mean Platelet Volume 9.8 fl (7.4-10.4); Monocytes Absolute Auto 0.9 K/mm3 (0.1-0.6); Monocytes Percent Auto 9.7 % (2.6-8.5); Neutrophils Absolute Auto 6.6 K/mm3 (1.3-6.7); Neutrophils Percent Auto 75.3 % (45.5-73.1); Platelet Count Result 186 k/mm3 (150-375); Red Blood Count 4.57 M/mm3 (4.6-6.20); Red Cell Distribution Width 13.3 % (11.5-14.5); White Blood Count 8.7 K/mm3 (4.5-10.0)
[2023-01-31 11:30] LABS: Alanine Aminotransferase 37 U/L (6-50); Albumin Level 4.3 g/dL (3.5-5.1); Alkaline Phosphatase 55 U/L (38-126); Anion Gap 10 mmol/L (8-16); Aspartate Amino Transferase 42 U/L (17-59); Bilirubin,Total 1.3 mg/dL (0.2-1.3); Blood Urea Nitrogen 19 mg/dL (9-20); Calcium 9.3 mg/dL (8.4-10.2); Carbon Dioxide 28 mmol/L (22-30); Chloride 100 mmol/L (98-107); Estimated CRCL calculation 124 ml/min; Estimated Glomerular Filt Rate > 60; Glucose 125 mg/dL (65-110); Potassium 4.2 mmol/L (3.4-5.0); Sodium 138 mmol/L (137-145)
--- NOTE | 2023-01-31 11:59 | ED.SOB ---
HPI - SOB/Dyspnea General Chief Complaint: Shortness of Breath/Dyspnea Stated Complaint: SOB, leg swelling Time Seen by Provider: 01/31/23 11:56 History of Present Illness HPI Narrative: Patient is a 67-year-old male with history of hypertension, asthma, depression, anxiety here with shortness of breath. He states he has been having shortness of breath for the last 1 month and is progressively worsening. He is now to the point where he can only take a few steps before having to take a rest while walking on the hallway at work. He endorses associated lower extremity swelling bilaterally. He denies any recent travel or recent surgeries. No prior history of PE or DVT. No prior cardiac history or history of CHF that he is aware of. He denies fever or chills. He has had an associated nasal congestion and postnasal drip throughout the same period of time. He has been using his rescue inhalers more frequently, they only seem to help for about 2 hours and he does not typically last 4 hours before his next dose is due. He denies any active chest pain. Related Data Home Medications Medication Instructions Recorded Confirmed lorazepam 0.5 mg tablet 0.25 mg PO BID PRN anxiety 02/21/20 01/23/23 buspirone 15 mg tablet 15 mg PO TID 04/08/20 01/23/23 sertraline 50 mg tablet 50 mg PO DAILY 07/14/20 01/23/23 Allergies Allergy/AdvReac Type Severity Reaction Status Date / Time Penicillins Allergy Severe Swelling Verified 01/31/23 11:03 of Lip/Tongue/Throat tetracycline Allergy Unknown Unknown Verified 01/31/23 11:03 sulfamethoxazole AdvReac Intermediate Abdominal Verified 01/31/23 11:03 [From Pain, Sulfamethoxazole-Trimethoprim] flushing trimethoprim AdvReac Intermediate Abdominal Verified 01/31/23 11:03 [From Pain, Sulfamethoxazole-Trimethoprim] flushing levofloxacin AdvReac Mild legs Verified 01/31/23 11:03 burning Review of Systems Review of Systems: All systems reviewed & are unremarkable except as noted in HPI and below PMFSH Past Medical History Medical History Adenomatous colon polyp Colon cancer screening Constipation Dyslipidemia Environmental allergies Epigastric pain Essential (primary) hypertension GERD without esophagitis History of prediabetes Intermittent asthma Irritable bowel syndrome with constipation Nausea Prediabetes Unspecified osteoarthritis, unspecified site Weight loss Surgical History Surgical History No pertinent past surgical history Family History Family History Father Family history of lung cancer Mother Family history of malignant neoplasm of esophagus Social History Social History Smoking status: Never smoker Second hand tobacco smoke exposure: No Alcohol intake: never Substance use: never Substance use type: does not use Lack of Transportation: No Lack of Food: Never True Current Housing: I Have Housing Concerned About Future Housing: No Difficulty Paying Gas/Electric Bills: No Difficulty Paying for Meds: No Currently Unemployed: No Education: Trade/Vocational Certificate Difficulty w/ Childcare or Family Care: No Living arrangements: with family Occupation/Education: occupation Gender identity (if verbalized by the patient): Male Sexual Orientation (if Verbalized by the Patient): Straight or Heterosexual Spiritual care concerns: No Agree to blood products: Yes Course Course Emergency Course: Chart review performed. Patient was seen on 01/23/23 for URI symptoms at the Urgent care where he was diagnosed with suspected viral URI. Triage vitals show HTN, slight increased respiratory rate at 23 and is on 2L nasal canula. PCP visit on 12/01/22 notes history of Asthma, GERD, HTN
[2023-01-31 12:17] LABS: Partial Thromboplastin Time 26.7 SECONDS (22.3-36.8)
[2023-01-31 12:21] LABS: NT Pro B Type Natriuretic Pept 847 pg/mL (19.9-100); Troponin I < 0.012 ng/mL (0.000-0.034)
[2023-01-31] MEDS: methylPREDNISolone SOD SUCC 125 MG VIAL IV PUSH (12:24)
[2023-01-31] MEDS: IPRATROPIUM BR 0.02% INH SOLN 0.5 MG/2.5 ML VIAL INHALATION ×2 (12:29→14:15)
[2023-01-31] MEDS: ALBUTEROL SULFATE NEB 2.5 MG/3 ML INH INHALATION ×2 (12:29→14:15)
[2023-01-31 12:59] LABS: Influenza A QL RT-PCR Negative (Negative); Influenza B QL RT-PCR Negative (Negative); RSV RNA, RT-PCR Negative (Negative); SARS-CoV-2 RNA PCR Negative (Negative)
--- NOTE | 2023-01-31 16:15 | ADMGEN ---
This patient, Terrance Smith, was admitted to Medical Room 246-01. Patient/family oriented to hospital policies and general routines including ID bracelet, bed and alarms, visiting hours, pain management, procedures, bathroom and other care routines, personal items, smoking policy, room service/diet, and visiting hours. Information on how to activate the Rapid Response Team has been discussed. Patient/Family are encouraged to report perceived risks to care and to ask questions if they do not understand what they are told or what they should do.
--- NOTE | 2023-01-31 17:10 | PM.IMHP ---
H&P: HPI History of Present Illness Date/Time: 01/31/23 17:10 Chief Complaint: Shortness of breath and leg swelling. Narrative: This is a pleasant 67-year-old male with asthma, hypertension, dyslipidemia, gastroesophageal reflux disease, depression, and anxiety presented to the emergency department via private vehicle from home for evaluation of shortness of breath and leg swelling. The patient provides the following history. It is not unusual for him to have some mild lower extremity edema however it has gotten increasingly worse over the past 1 week. He has also had progressive dyspnea on lesser and lesser exertion to the point where he was barely able to walk 10 steps down the cardozo at work today without resting. He endorses postnasal drip and mild nasal congestion chronically however a couple of weeks ago was much worse and he was actually seen at urgent care for evaluation given other symptoms including headache and generalized body aches. He tested negative for influenza and COVID and was diagnosed with an acute viral syndrome. He has been using his rescue inhaler which seems to help for couple of hours but it has not given him longstanding relief. He denies fever, syncope, near syncope, chest pain, pleuritic pain, palpitations, sensations of racing heart, nausea, vomiting, and calf pain. No known history of cardiac disease. No history of venous thromboembolism. He denies concerns for sleep apnea. SpO2 was as low as 88% on room air in the ED and he is currently on 2 L nasal cannula. Blood pressures have been running persistently in the 170s systolic. CMP and CBC were without significant findings. Troponin was undetectable. ProBNP was mildly elevated a 47. He tested negative for influenza, RSV, and COVID. CT of the chest showed clear lungs with no evidence of pulmonary embolism, aortic dissection, or aortic aneurysm. Bilateral lower extremity venous Doppler ultrasounds were negative for DVT. He received a dose of Solu-Medrol and a nebulizer treatment in the ED and he is being admitted in this setting for further evaluation. Review of Systems Review of Systems: Twelve systems were reviewed and are negative except for as per HPI. [facility] Past Medical History Medical History (Updated 02/01/23 @ 15:02 by Ruby Blackman APRN) Adenomatous colon polyp Anxiety and depression Dyslipidemia Environmental allergies Essential (primary) hypertension GERD without esophagitis Intermittent asthma Irritable bowel syndrome with constipation Prediabetes A1c was 6.1% on 01/14/2023. Unspecified osteoarthritis, unspecified site Surgical History Surgical History No pertinent past surgical history Family History Family History Father Family history of lung cancer Mother Family history of malignant neoplasm of esophagus Social History Social History (Updated 01/31/23 @ 17:12 by Annette Souza PA-C) Social History: Surrogate medical decision maker: Anai Smith, daughter. Code status: Full code. Smoking status: Never smoker Second hand tobacco smoke exposure: No Alcohol intake: current Substance use: never Substance use type: does not use Lack of Transportation: No Lack of Food: Never True Current Housing: I Have Housing Concerned About Future Housing: No Difficulty Paying Gas/Electric Bills: No Difficulty Paying for Meds: No Currently Unemployed: No Education: High School Diploma/GED Difficulty w/ Childcare or Family Care: No Living arrangements: with family Occupation/Education: occupation Spiritual care concerns: No Agree to blood products: Yes Meds Home Medications and Allergies Home Medications Medication Instructions Recorded Confirmed Type lorazepam 0.5 mg tablet 0.25 mg PO BID PRN anxiety 02/21/20 01/31/23 History buspirone 15 mg tablet 15 mg PO TID 04/08/20
[2023-02-01] VITALS (15 sets, daily range): BP systolic 137–164; BP diastolic 58–74; PULSE 56–74; RESP 18–19; TEMP 36.4–36.8; O2SAT 93–98
[2023-02-01 08:06] LABS: Basophils Percent Auto 0.2 % (0.2-1.2); Hemoglobin 12.9 g/dL (14.0-18.0); Immature Granulocyte Percent A 0.8 % (0-0.5); Lymphocytes Absolute Auto 0.92 K/mm3 (0.9-3.2); Lymphocytes Percent Auto 7.7 % (18.3-44.2); Mean Corpuscular HGB Conc 31.5 g/dl (32-36); Mean Corpuscular Hemoglobin 28.7 pg (26-34); Mean Corpuscular Volume 91.1 fl (80-100); Mean Platelet Volume 9.8 fl (7.4-10.4); Monocytes Absolute Auto 1.1 K/mm3 (0.1-0.6); Monocytes Percent Auto 9.1 % (2.6-8.5); Neutrophils Absolute Auto 9.8 K/mm3 (1.3-6.7); Neutrophils Percent Auto 82.2 % (45.5-73.1); Platelet Count Result 208 k/mm3 (150-375); Red Cell Distribution Width 13.2 % (11.5-14.5); White Blood Count 11.9 K/mm3 (4.5-10.0)
[2023-02-01 08:18] LABS: Anion Gap 6 mmol/L (8-16); Blood Urea Nitrogen 19 mg/dL (9-20); Calcium 9.2 mg/dL (8.4-10.2); Carbon Dioxide 32 mmol/L (22-30); Chloride 97 mmol/L (98-107); Estimated CRCL calculation 109 ml/min; Estimated Glomerular Filt Rate > 60; Glucose 149 mg/dL (65-110); Sodium 135 mmol/L (137-145)
[2023-02-01] MEDS: busPIRone HCL 5 MG TABLET 15 MG PO ×3 (08:46→17:50)
[2023-02-01] MEDS: SERTRALINE HCL 50 MG TABLET PO (08:47)
[2023-02-01] MEDS: PANTOPRAZOLE 40 MG TABLET PO (08:47)
[2023-02-01] MEDS: hydroCHLOROthiazide 12.5 MG CAPSULE PO (08:47)
[2023-02-01] MEDS: lisinopriL 10 MG TABLET PO (08:47)
[2023-02-01] MEDS: ATORVASTATIN 20 MG TABLET PO (08:48)
[2023-02-01] MEDS: FUROSEMIDE INJ 40 MG/4 ML VIAL IV PUSH (08:48)
[2023-02-01] MEDS: FLUTICASONE/SALMETEROL 115-21 MCG INHALER 1 PUFF 2 PUFF INHALATION ×2 (09:13→20:18)
[2023-02-01] MEDS: PERFLUTREN LIPID MICROSPHERES 1.5 ML VIAL DILUTED TO 10 ML TOTAL VOLUME IV PUSH (09:21)
--- NOTE | 2023-02-01 12:11 | IVDEFINITY ---
Prior to administration of IV Definity the patient was educated on the risks and benefits of the imaging enhancing agent including potential adverse side effects. The patient verbalized understanding. Allergies were verified. No exclusion criteria were identified and at least one of the following inclusion criteria were met: 1) physician request, 2) patient technically difficult to image (per the [place] [employer]ocardi[employer] guidelines of two or more segments not discernable within the apical view), or 3) questionable left ventricular function. ?
--- NOTE | 2023-02-01 14:50 | PM.IMPN ---
Progress Note: A&P Assessment and Plan (1) Shortness of breath: Code(s): R06.02 - Shortness of breath Status: Acute Assessment and Plan: ProBNP is mildly elevated CTA of the chest showed clear lungs and no evidence of pulmonary embolism no longer requiring supp oxygen, satting fine on room air ECHO showed grade 2 diastolic dysfunction, cardiology consulted (2) Hypoxia: Code(s): R09.02 - Hypoxemia Status: Acute Assessment and Plan: s/p 1 dose of steroid in ER no longer requiring supp oxygen, satting fine on room air (3) Intermittent asthma: Code(s): J45.20 - Mild intermittent asthma, uncomplicated Status: Chronic Assessment and Plan: continue home albuterol s/p 1 dose of steroid in ER (4) Bilateral edema of lower extremity: Code(s): R60.0 - Localized edema Status: Acute Assessment and Plan: s/p Furosemide 40 mg IV x1 lower leg edema improving, continue to monitor (5) Essential (primary) hypertension: Code(s): I10 - Essential (primary) hypertension Status: Acute (6) Anxiety and depression: Code(s): F41.9 - Anxiety disorder, unspecified; F32.A - Depression, unspecified Status: Acute Assessment and Plan: continue home meds (7) Suspected sleep apnea: Code(s): R29.818 - Other symptoms and signs involving the nervous system Status: Acute Assessment and Plan: apnea link ordered (8) Hypertension: Code(s): I10 - Essential (primary) hypertension Status: Chronic Assessment and Plan: Continue antihypertensives and monitor closely. Adjustments can be made depending on how he trends Subjective Date/time seen: 02/01/23 14:50 Interval history: Patient is a 67 YO male with PMH of asthma, hypertension, dyslipidemia, gastroesophageal reflux disease, depression, and anxiety admitted from the ED for evaluation of shortness of breath and leg swelling. It is not unusual for him to have some mild lower extremity edema however it has gotten increasingly worse over the past week. He has also had progressive dyspnea on lesser and lesser exertion to the point where he was barely able to walk 10 steps down the cardozo at work yesterday without resting. He endorses postnasal drip and mild nasal congestion chronically, recently seen at urgent care for acute viral illness. He denies fever, syncope, near syncope, chest pain, pleuritic pain, palpitations, sensations of racing heart, nausea, vomiting, and calf pain. No known history of cardiac disease. No history of venous thromboembolism. Today he is in no acute distress. An anxious fellow with many questions. We discussed the role sleep apnea can play on the work of the heart, BP control and he does concede he has poor sleep. He is overweight, apnea link ordered while inpatient as he is admittedly not likely to follow up outpatient. ECHO done today showing grade 2 diastolic dysfunction, cardiology consulted as he has had no previous work up. He is no longer requiring supplemental oxygen. Wound consulted for blister wound on his right lower leg, no signs of infection and dressing care instructions given. PT ordered for eval. Will continue to nonitor and plan to d/c pending cardiology. Review of Systems Review of Systems: Twelve systems were reviewed and are negative except for as per HPI. Exam Narrative: General: Nontoxic-appearing male sitting up in bed. HEENT: PERRL, EOMI. Oral mucosa moist. Neck: Supple. No JVD. Respiratory: Respirations are nonlabored and lungs are clear to auscultation. Cardiovascular: RRR with S1-S2. Gastrointestinal: Abdomen is soft, obese, nontender, and nondistended with positive bowel sounds. Skin: Warm and dry. Scattered hyperpigmented patches on the lower extremities, likely due to venous stasis. Extremities: No cyanosis or clubbing. Bilateral lower extremity edema softening towards the thighs. Negat
--- NOTE | 2023-02-01 16:07 | ECHO_ITS ---
Patient Info Name: Terrance Smith Age: 67 years : 1955 Gender: Male Ht: 71 in Wt: 282 lbs BSA: 2.58 m2 HR: 69 bpm BP: 164 / 74 mmHg Heart Rhythm: Sinus Arrhythmia Technical Quality: Fair Exam Date: 02/01/2023 9:21 AM Exam Location: Echo Lab Patient Status: Inpatient Admit Date: 01/31/2023 Staff Ordering Physician: Annette Souza PA-C Instrument Specialist: Becky Guevara RDCS Attending Provider: Albaro Griffith MD Referring Physician: Libby GRANADO; Exam Type: CA echo dop bubble study w con Study Info Indications - Swelling R06.02 - Shortness of breath Complete two-dimentional, color flow and Doppler transthoracic echocardiogram is performed with agitated saline and with contrast to opacify the left ventricle and to improve the delineation of the left ventricle endocardial borders. Contrast/Agitated Saline Contrast/Ag. Saline: Definity Amount: 2.00 ml Administered By: Becky Guevara RDCS Existing IV Access: Yes IV Access Condition: patent with no signs of infiltration Contrast/Ag. Saline: Agitated Saline Amount: 20.00 ml Existing IV Access: Yes IV Access Condition: patent with no signs of infiltration Summary 1. Definity contrast administered improved wall motion interpretation. 2. Left ventricular chamber dimension is normal. 3. Left ventricular systolic function is hyperdynamic, estimated at >70%. 4. There is mild concentric increased left ventricular wall thickness. 5. The left ventricular diastolic function is grade II diastolic dysfunction. 6. E/e' 9 is minimally elevated. 7. Left atrial chamber dimension is moderately enlarged. 8. There is trace tricuspid valve regurgitation. 9. No pulmonary hypertension, estimated pulmonary arterial systolic pressure is 17 mmHg. Left Ventricle E/e' 9 is minimally elevated. Definity contrast administered improved wall motion interpretation. Left ventricular chamber dimension is normal. Left ventricular systolic function is hyperdynamic, estimated at >70%. There is mild concentric increased left ventricular wall thickness. The left ventricular diastolic function is grade II diastolic dysfunction. Right Ventricle Right ventricular systolic function is normal and with normal TAPSE 2.4 cm. Right ventricular chamber dimension is normal. Left Atria Left atrial chamber dimension is moderately enlarged. Right Atria Right atrial chamber dimension is normal. Atrial Septum Agitated saline injection opacified right side cardiac chambers without shunt to left side cardiac chambers. Intact interatrial septum visualized by 2D and agitated saline imaging. Aortic Valve The aortic valve is trileaflet. There is no aortic valve stenosis. There is no aortic valve regurgitation. Pulmonic Valve There is no pulmonic regurgitation. Mitral Valve There is no mitral valve stenosis. There is no mitral valve regurgitation. Tricuspid Valve There is trace tricuspid valve regurgitation. No pulmonary hypertension, estimated pulmonary arterial systolic pressure is 17 mmHg. Pericardium/Pleural There is no pericardial effusion. Inferior Vena Cava Normal inferior vena cava with >50% collapse upon inspiration consistent with normal right atrial pressure, 5 mmHg. Aorta The aortic root size at the sinus of Valsalva is normal. Left Ventricular Outflow Tract Name Value Normal
[2023-02-02] VITALS (10 sets, daily range): BP systolic 112–180; BP diastolic 55–74; PULSE 61–83; RESP 18–20; TEMP 36.6–36.9; O2SAT 94–96
[2023-02-02 07:01] LABS: Basophils Percent Auto 0.4 % (0.2-1.2); Eosinophils Absolute Auto 0.1 K/mm3 (0-0.3); Eosinophils Percent Auto 0.8 % (0-4.4); Hemoglobin 12.8 g/dL (14.0-18.0); Immature Granulocyte Absolute 0.06 K/mm3 (0.00-0.031); Immature Granulocyte Percent A 0.7 % (0-0.5); Lymphocytes Absolute Auto 1.16 K/mm3 (0.9-3.2); Lymphocytes Percent Auto 12.7 % (18.3-44.2); Mean Corpuscular Volume 90.7 fl (80-100); Mean Platelet Volume 9.9 fl (7.4-10.4); Monocytes Absolute Auto 1.1 K/mm3 (0.1-0.6); Monocytes Percent Auto 12.5 % (2.6-8.5); Neutrophils Absolute Auto 6.6 K/mm3 (1.3-6.7); Neutrophils Percent Auto 72.9 % (45.5-73.1); Platelet Count Result 180 k/mm3 (150-375); Red Blood Count 4.41 M/mm3 (4.6-6.20); Red Cell Distribution Width 13.5 % (11.5-14.5); White Blood Count 9.1 K/mm3 (4.5-10.0)
[2023-02-02 07:06] LABS: Anion Gap 6 mmol/L (8-16); Blood Urea Nitrogen 22 mg/dL (9-20); Calcium 9.1 mg/dL (8.4-10.2); Carbon Dioxide 34 mmol/L (22-30); Chloride 97 mmol/L (98-107); Estimated CRCL calculation 109 ml/min; Estimated Glomerular Filt Rate > 60; Glucose 143 mg/dL (65-110); Potassium 3.7 mmol/L (3.4-5.0); Sodium 137 mmol/L (137-145)
--- NOTE | 2023-02-02 08:03 | PM.IMPN ---
Progress Note: A&P Assessment and Plan (1) Shortness of breath: Code(s): R06.02 - Shortness of breath Status: Acute Assessment and Plan: 02/02/23: Currently on room air, lungs clear to auscultation. Continue with IV Lasix Cardiology consulted and following. Echo revealing acute decompensated heart failure with preserved EF greater than 70%, evidency of moderate diastolic dysfunction, LVH mild and improved with diuresis ProBNP on admission 847, will repeat in the morning Check TSH (2) Hypoxia: Code(s): R09.02 - Hypoxemia Status: Acute Assessment and Plan: see above (3) Essential (primary) hypertension: Code(s): I10 - Essential (primary) hypertension Status: Acute Assessment and Plan: 02/02/23: 146/68-180-74 Continue with B/P medications Lisinopril and HCTZ (4) Bilateral edema of lower extremity: Code(s): R60.0 - Localized edema Status: Acute Assessment and Plan: 02/02/23: BLE edema 1-2+ Continue with IV Lasix (5) Intermittent asthma: Code(s): J45.20 - Mild intermittent asthma, uncomplicated Status: Chronic Assessment and Plan: of note (6) Suspected sleep apnea: Code(s): R29.818 - Other symptoms and signs involving the nervous system Status: Acute Assessment and Plan: 02/02/23: Apnea link positive for ELIANA Cpap 10/40% ordered for tonight Titrate as needed to keep sat above 92% (7) Prediabetes: Code(s): R73.03 - Prediabetes Status: Acute Assessment and Plan: 02/02/23: BG ranging 143-149 Patient does not take anything at home, diet controlled. Will check Hgb A1C in a.m. (8) Anxiety and depression: Code(s): F41.9 - Anxiety disorder, unspecified; F32.A - Depression, unspecified Status: Acute Assessment and Plan: 02/02/23: restarted on Zoloft Time Spent With Patient Time with patient: Greater than 35 minutes Subjective Date/time seen: 02/02/23 08:03 Interval history: This is a 67 year old male who presented to the hospital on 01/31/23 with complaints of shortness of breath and leg swelling. Work up in the hospital included a chest x-ray which revealed bilateral perihilar and basilar airspace disease which may represent edema or pneumonia, small pleural effusions. He also had a CTA of the chest which was negative for any acute PE, aortic dissection, or aneurysm. Venous dopplers were completed and was negative for DVT. Labs revealed a proBNP 847, troponin 0.012. He was given IV Lasix for diuresis. On examination today patient is alert and oriented x3, sitting on the side of the bed. VSS, he is afebrile, he is on room air. He denies any headache, shortness of breath, chest pain, nausea, vomiting, diarrhea, abdominal pain. Labs today revealed WBC 9.1, Hbg 12.8, Hct 40.0, Na+ 137, K+ 3.7, Chloride 97, Bicarb 34, BUN 22, Creatinine 0.80, BG ranging 143-149. Apnea link showing AHI 12.7, RI 15.1, NILS 29.1 revealing pathological breathing disorder. Echo revealed grade 2 diastolic dysfunction with normal EF >70%. Review of Systems Review of Systems: All systems reviewed & are unremarkable except as noted in HPI and below Constitutional: Constitutional: Reports as per HPI and Reports no additional constitutional complaints Eyes: Eyes: Reports as per HPI and Reports no additional eye complaints ENT: Reports system reviewed and no additional complaints, except as documented and Reports as per HPI Cardiovascular: Cardiovascular: Reports as per HPI and Reports no additional cardiovascular complaints Respiratory: Respiratory: Reports as per HPI and Reports no additional respiratory complaints Gastrointestinal: Gastrointestinal: Reports as per HPI and Reports no additional gastrointestinal complaints Genitourinary: Genitourinary: Reports no additional male genitourinary complaints and Reports as per HPI Musculoskeletal: Musculoskeletal: Reports no additi
[2023-02-02] MEDS: FLUTICASONE/SALMETEROL 115-21 MCG INHALER 1 PUFF 2 PUFF INHALATION ×2 (08:06→20:12)
[2023-02-02] MEDS: PANTOPRAZOLE 40 MG TABLET PO (08:29)
[2023-02-02] MEDS: ATORVASTATIN 20 MG TABLET PO (08:29)
[2023-02-02] MEDS: lisinopriL 10 MG TABLET PO (08:29)
[2023-02-02] MEDS: hydroCHLOROthiazide 12.5 MG CAPSULE PO (08:29)
[2023-02-02] MEDS: SERTRALINE HCL 50 MG TABLET PO (08:30)
[2023-02-02] MEDS: FUROSEMIDE INJ 40 MG/4 ML VIAL IV PUSH ×2 (08:30→16:12)
[2023-02-02] MEDS: busPIRone HCL 5 MG TABLET 15 MG PO ×3 (08:30→16:11)
--- NOTE | 2023-02-02 12:43 | PM.CNCAR ---
Assessment and Plan Assessment and plan (1) Acute diastolic heart failure: Code(s): I50.31 - Acute diastolic (congestive) heart failure Status: Acute Assessment and Plan: Patient presents clinically with acute decompensated heart failure with preserved ejection fraction EF greater than 70% with evidence of moderate diastolic dysfunction, mild LVH much improved with IV diuresis. We discussed the pathophysiology and management strategies in this regard. All questions answered to his satisfaction. Likely exacerbated due to hypertensive urgency at presentation poorly controlled in generalized reported. CHF may also be exacerbated due to untreated ELIANA. No evidence for significant valve pathology or arrhythmia thus far as contribution. Patient did not endorse anginal symptoms, initial troponin negative. ProBNP elevated at 847 but without radiographic pulmonary edema. Patient now states he has no shortness of breath at rest. He admitted to some abdominal fullness as well which has resolved. CHF counseling performed. BP control is barrett. Continue IV diuresis, will given additional IV Lasix 40 mg x 1 then observe volume status in a.m. anticipate transition to oral regimen within the next 24 hours. Check TSH. Monitor electrolytes and renal function closely. Repeat potassium to keep around 4.0 as appropriate. (2) Essential (primary) hypertension: Code(s): I10 - Essential (primary) hypertension Status: Acute Assessment and Plan: Patient presents with hypertensive urgency and longstanding BP control issues contribute to diastolic dysfunction and LVH by echocardiogram. Blood pressure much better controlled this afternoon although significantly elevated earlier this morning with systolic blood pressure is generally ranging in the 160 range as low as 130s to 190s. As most recent blood pressure this afternoon was much better controlled continue lisinopril 10 mg daily, hydrochlorothiazide 12.5 mg daily for now. However, if BP is significantly elevated increase lisinopril to 20 mg daily. Monitor electrolytes on hydrochlorothiazide and furosemide. May favor discontinuation of hydrochlorothiazide with continuation of oral Lasix to minimize electrolyte disturbances. (3) Dyslipidemia: Code(s): E78.5 - Hyperlipidemia, unspecified Status: Acute Assessment and Plan: LDL 120. Continue atorvastatin 20 mg at bedtime. (4) Suspected sleep apnea: Code(s): R29.818 - Other symptoms and signs involving the nervous system Status: Acute Assessment and Plan: History of ELIANA and patient admits to significant chronic fatigue for quite a long time suggestive of clinically relevant untreated ELIANA. Apnea link reveals clinically significant sleep apnea with an AHI of 13. Formal sleep study as an outpatient for further assessment. Discussed lifestyle modification, weight loss in this regard. Patient verbalized understanding. All questions answered to his satisfaction. (5) Obesity (BMI 30-39.9): Code(s): E66.9 - Obesity, unspecified Status: Acute Assessment and Plan: Weight loss, dietary changes, and lifestyle modification discussed at length. Patient verbalized understanding. History of Present Illness History of Present Illness Consult date/time: date of service:02/02/23 12:43 Requesting physician: Ruby Blackman APRN Consult reason: Other ( Diastolic dysfunction, shortness of breath) Reason For Visit: Hypoxia/New Onset CHF Narrative: Patient is a very pleasant 67-year-old male with a past medical history significant for hypertension, hyperlipidemia, GERD, anxiety depression, morbid obesity, remote history of ELIANA who presented to the emergency depart with complaints of least 2 months progressive shortness of breath and lower extremity edema. Patient states he was trying to tough it out for prior to admission was unable to walk more than 150 ft prior to having to stop and c
[2023-02-02] MEDS: POTASSIUM CHLORIDE 20 MEQ ER TABLET 40 MEQ PO (16:12)
[2023-02-03] VITALS (12 sets, daily range): BP systolic 127–147; BP diastolic 57–70; PULSE 60–80; RESP 14–18; TEMP 36.7–37.1; O2SAT 92–95
[2023-02-03 05:34] LABS: Basophils Absolute Auto 0.1 K/mm3 (0.0-0.1); Basophils Percent Auto 0.8 % (0.2-1.2); Eosinophils Absolute Auto 0.1 K/mm3 (0-0.3); Eosinophils Percent Auto 1.5 % (0-4.4); Hemoglobin 13.3 g/dL (14.0-18.0); Immature Granulocyte Absolute 0.07 K/mm3 (0.00-0.031); Immature Granulocyte Percent A 0.8 % (0-0.5); Lymphocytes Absolute Auto 1.23 K/mm3 (0.9-3.2); Lymphocytes Percent Auto 13.3 % (18.3-44.2); Mean Corpuscular HGB Conc 31.7 g/dl (32-36); Mean Corpuscular Hemoglobin 28.5 pg (26-34); Mean Corpuscular Volume 90.1 fl (80-100); Mean Platelet Volume 9.7 fl (7.4-10.4); Monocytes Absolute Auto 1.3 K/mm3 (0.1-0.6); Monocytes Percent Auto 14.2 % (2.6-8.5); Neutrophils Absolute Auto 6.4 K/mm3 (1.3-6.7); Neutrophils Percent Auto 69.4 % (45.5-73.1); Platelet Count Result 187 k/mm3 (150-375); Red Blood Count 4.66 M/mm3 (4.6-6.20); Red Cell Distribution Width 13.6 % (11.5-14.5); White Blood Count 9.3 K/mm3 (4.5-10.0)
[2023-02-03 05:52] LABS: NT Pro B Type Natriuretic Pept 95 pg/mL (19.9-100)
[2023-02-03 05:56] LABS: Alanine Aminotransferase 27 U/L (6-50); Alkaline Phosphatase 61 U/L (38-126); Anion Gap 8 mmol/L (8-16); Aspartate Amino Transferase 27 U/L (17-59); Bilirubin,Total 1.3 mg/dL (0.2-1.3); Blood Urea Nitrogen 24 mg/dL (9-20); Calcium 8.9 mg/dL (8.4-10.2); Carbon Dioxide 30 mmol/L (22-30); Chloride 97 mmol/L (98-107); Estimated CRCL calculation 109 ml/min; Estimated Glomerular Filt Rate > 60; Glucose 142 mg/dL (65-110); Potassium 3.7 mmol/L (3.4-5.0); Sodium 135 mmol/L (137-145)
[2023-02-03] MEDS: FLUTICASONE/SALMETEROL 115-21 MCG INHALER 1 PUFF 2 PUFF INHALATION ×2 (07:37→21:05)
[2023-02-03 08:21] LABS: Hemoglobin A1C 5.8 % (<5.7)
[2023-02-03] MEDS: FUROSEMIDE INJ 40 MG/4 ML VIAL IV PUSH (08:43)
[2023-02-03] MEDS: ATORVASTATIN 20 MG TABLET PO (08:43)
[2023-02-03] MEDS: PANTOPRAZOLE 40 MG TABLET PO (08:43)
[2023-02-03] MEDS: ENOXAPARIN 40 MG/0.4 ML SYRINGE SUB-Q (08:43)
[2023-02-03] MEDS: lisinopriL 20 MG TABLET PO (08:43)
[2023-02-03] MEDS: busPIRone HCL 5 MG TABLET 15 MG PO ×3 (08:44→16:56)
[2023-02-03] MEDS: SERTRALINE HCL 50 MG TABLET PO (08:44)
--- NOTE | 2023-02-03 10:24 | P.PNIM_ITS ---
Progress Note: A&P Assessment and Plan (1) Shortness of breath: Code(s): R06.02 - Shortness of breath Status: Acute Assessment and Plan: 02/02/23: * Currently on room air, lungs clear to auscultation. * Continue with IV Lasix * Cardiology consulted and following. * Echo revealing acute decompensated heart failure with preserved EF greater than 70%, evidency of moderate diastolic dysfunction, LVH mild and improved with diuresis * ProBNP on admission 847, will repeat in the morning * Check TSH 02/03/23: * Remains on room air, lungs clear to auscultation * Patient continues on IV Lasix, will defer to Cardiology for oral dosing * Cardiology following * ProBNP 95 * TSH 2.64 (2) Hypoxia: Code(s): R09.02 - Hypoxemia Status: Acute Assessment and Plan: see above (3) Essential (primary) hypertension: Code(s): I10 - Essential (primary) hypertension Status: Acute Assessment and Plan: 02/02/23: * 146/68-180-74 * Continue with B/P medications Lisinopril and HCTZ 02/03/23: * Lisinopril increased to 20 mg in the morning, hydrochlorothiazide was discontinued * Patient currently IV Lasix daily 40 mg will defer to Cardiology for oral dosing (4) Bilateral edema of lower extremity: Code(s): R60.0 - Localized edema Status: Acute Assessment and Plan: 02/02/23: * BLE edema 1-2+ * Continue with IV Lasix 02/03/23: * Bilateral lower extremity edema mild to 1+ * Patient currently on IV Lasix daily will defer to Cardiology for oral dosing * ProBNP 95 (5) Intermittent asthma: Code(s): J45.20 - Mild intermittent asthma, uncomplicated Status: Chronic Assessment and Plan: of note (6) Suspected sleep apnea: Code(s): R29.818 - Other symptoms and signs involving the nervous system Status: Acute Assessment and Plan: 02/02/23: * Apnea link positive for ELIANA * Cpap 10/40% ordered for tonight * Titrate as needed to keep sat above 92% 02/03/23: * Continue with current treatment plan (7) Prediabetes: Code(s): R73.03 - Prediabetes Status: Acute Assessment and Plan: 02/02/23: * BG ranging 143-149 * Patient does not take anything at home, diet controlled. * Will check Hgb A1C in a.m. 02/03/23: * Blood sugars ranging 142-143 * Hemoglobin A1c 5.8 * No change to current treatment plan * Encouraged heart healthy diet and exercise program (8) Anxiety and depression: Code(s): F41.9 - Anxiety disorder, unspecified; F32.A - Depression, unspecified Status: Acute Assessment and Plan: 02/02/23: * restarted on Zoloft and Buspar 02/03/23: * No change to current treatment plan Time Spent With Patient Time with patient: Greater than 35 minutes Subjective Date/time seen: 02/03/23 10:24 Interval history: 02/02/23: This is a 67 year old male who presented to the hospital on 01/31/23 with complaints of shortness of breath and leg swelling. Work up in the hospital included a chest x-ray which revealed bilateral perihilar and basilar airspace disease which may represent edema or pneumonia, small pleural effusions. He also had a CTA of the chest which was negative for any acute PE, aortic dissection, or aneurysm. Venous dopplers were completed and was negative for DVT. Labs revealed a proBNP 847, troponin 0.012. He was given IV Lasix for diuresis. On examination today patient is alert and oriented x3, sitting on the side of the bed. VSS, he is afebri
--- NOTE | 2023-02-03 10:24 | PM.IMPN ---
Progress Note: A&P Assessment and Plan (1) Shortness of breath: Code(s): R06.02 - Shortness of breath Status: Acute Assessment and Plan: 02/02/23: Currently on room air, lungs clear to auscultation. Continue with IV Lasix Cardiology consulted and following. Echo revealing acute decompensated heart failure with preserved EF greater than 70%, evidency of moderate diastolic dysfunction, LVH mild and improved with diuresis ProBNP on admission 847, will repeat in the morning Check TSH 02/03/23: Remains on room air, lungs clear to auscultation Patient continues on IV Lasix, will defer to Cardiology for oral dosing Cardiology following ProBNP 95 TSH 2.64 (2) Hypoxia: Code(s): R09.02 - Hypoxemia Status: Acute Assessment and Plan: see above (3) Essential (primary) hypertension: Code(s): I10 - Essential (primary) hypertension Status: Acute Assessment and Plan: 02/02/23: 146/68-180-74 Continue with B/P medications Lisinopril and HCTZ 02/03/23: Lisinopril increased to 20 mg in the morning, hydrochlorothiazide was discontinued Patient currently IV Lasix daily 40 mg will defer to Cardiology for oral dosing (4) Bilateral edema of lower extremity: Code(s): R60.0 - Localized edema Status: Acute Assessment and Plan: 02/02/23: BLE edema 1-2+ Continue with IV Lasix 02/03/23: Bilateral lower extremity edema mild to 1+ Patient currently on IV Lasix daily will defer to Cardiology for oral dosing ProBNP 95 (5) Intermittent asthma: Code(s): J45.20 - Mild intermittent asthma, uncomplicated Status: Chronic Assessment and Plan: of note (6) Suspected sleep apnea: Code(s): R29.818 - Other symptoms and signs involving the nervous system Status: Acute Assessment and Plan: 02/02/23: Apnea link positive for ELIANA Cpap 10/40% ordered for tonight Titrate as needed to keep sat above 92% 02/03/23: Continue with current treatment plan (7) Prediabetes: Code(s): R73.03 - Prediabetes Status: Acute Assessment and Plan: 02/02/23: BG ranging 143-149 Patient does not take anything at home, diet controlled. Will check Hgb A1C in a.m. 02/03/23: Blood sugars ranging 142-143 Hemoglobin A1c 5.8 No change to current treatment plan Encouraged heart healthy diet and exercise program (8) Anxiety and depression: Code(s): F41.9 - Anxiety disorder, unspecified; F32.A - Depression, unspecified Status: Acute Assessment and Plan: 02/02/23: restarted on Zoloft and Buspar 02/03/23: No change to current treatment plan Time Spent With Patient Time with patient: Greater than 35 minutes Subjective Date/time seen: 02/03/23 10:24 Interval history: 02/02/23: This is a 67 year old male who presented to the hospital on 01/31/23 with complaints of shortness of breath and leg swelling. Work up in the hospital included a chest x-ray which revealed bilateral perihilar and basilar airspace disease which may represent edema or pneumonia, small pleural effusions. He also had a CTA of the chest which was negative for any acute PE, aortic dissection, or aneurysm. Venous dopplers were completed and was negative for DVT. Labs revealed a proBNP 847, troponin 0.012. He was given IV Lasix for diuresis. On examination today patient is alert and oriented x3, sitting on the side of the bed. VSS, he is afebrile, he is on room air. He denies any headache, shortness of breath, chest pain, nausea, vomiting, diarrhea, abdominal pain. Labs today revealed WBC 9.1, Hbg 12.8, Hct 40.0, Na+ 137, K+ 3.7, Chloride 97, Bicarb 34, BUN 22, Creatinine 0.80, BG ranging 143-149. Apnea link showing AHI 12.7, RI 15.1, NILS 29.1 revealing pathological breathing disorder. Echo revealed grade 2 diastolic dysfunction with normal EF >70%. 02/03/23: On examination today patient is alert oriented x4, sitting on the side o
--- NOTE | 2023-02-03 11:06 | PC.NURSE ---
On 02/03/23, the student, [Dari Garrett], provided care and completed [facility] documentation on this patient. I have reviewed the student's documentation and agree with the findings.
--- NOTE | 2023-02-03 11:43 | PM.PNCARD ---
Progress Note: A&P Assessment and Plan (1) Acute diastolic heart failure: Code(s): I50.31 - Acute diastolic (congestive) heart failure Status: Acute Assessment and Plan: Patient presents clinically with acute decompensated heart failure with preserved ejection fraction EF greater than 70% with evidence of moderate diastolic dysfunction, mild LVH much improved with IV diuresis. Shift to p.o. furosemide today Will add spironolactone 25mg daily for blood pressure control and for diastolic dysfunction Daily weights BMP in the morning CHF counseling Anticipate discharge tomorrow (2) Essential (primary) hypertension: Code(s): I10 - Essential (primary) hypertension Status: Acute Assessment and Plan: Improving. As above, adding spironolactone. Continue lisinopril 20mg daily (3) Dyslipidemia: Code(s): E78.5 - Hyperlipidemia, unspecified Status: Acute Assessment and Plan: LDL 120. Continue atorvastatin 20 mg at bedtime. (4) Suspected sleep apnea: Code(s): R29.818 - Other symptoms and signs involving the nervous system Status: Acute Assessment and Plan: AHI 13 on apnea link. Will need outpatient sleep study (5) Obesity (BMI 30-39.9): Code(s): E66.9 - Obesity, unspecified Status: Acute Assessment and Plan: Weight loss, dietary changes, and lifestyle modification discussed at length. Patient verbalized understanding. Subjective Date/time seen: 02/03/23 11:43 Interval history: Date of service 02/03/23 He's feeling much better today. Was able to sleep lying flat last night with no trouble breathing. Denies shortness of breath. Swelling significantly improved. Review of Systems Review of Systems: Remainder of the review of systems is otherwise negative aside from that noted in the HPI. All systems reviewed & are unremarkable except as noted in HPI and below Constitutional: Constitutional: Reports as per HPI and Reports no additional constitutional complaints Eyes: Eyes: Reports as per HPI and Reports no additional eye complaints ENT: Reports system reviewed and no additional complaints, except as documented and Reports as per HPI Cardiovascular: Cardiovascular: Reports as per HPI and Reports no additional cardiovascular complaints Respiratory: Respiratory: Reports as per HPI and Reports no additional respiratory complaints Gastrointestinal: Gastrointestinal: Reports as per HPI and Reports no additional gastrointestinal complaints Genitourinary: Genitourinary: Reports no additional male genitourinary complaints and Reports as per HPI Musculoskeletal: Musculoskeletal: Reports no additional musculoskeletal complaints and Reports as per HPI Integumentary/Breasts: Skin/Breast: Reports system reviewed and no additional complaints, except as docu and Reports as per HPI Neurologic: Reports system reviewed and no additional complaints, except as documented and Reports as per HPI Psychiatric: Psychiatric: Reports no additional psychiatric complaints and Reports as per HPI Endocrine: Endocrine: Reports no additional endocrine complaints and Reports as per HPI Hematologic/Lymphatic: Hematologic/Lymphatic: Reports no additional hematologic/lymphatic complaints and Reports as per HPI Allergic/Immunologic: Allergic/Immunologic: Reports no additional allergic/immunologic complaints and Reports as per HPI Exam Const: General: comfortable, no acute distress, alert and awake Orientation/consciousness: patient oriented x3 HENMT: Head: normal to inspection Eyes: General: appearance normal, both eyes and all related structures Pupils: Equal, round and reactive pupils present Neck: Neck: normal visual inspection, supple and no JVD Carotids: normal carotid upstroke Resp: Effort & Inspection: normal respiratory effort Auscultation: clear to auscultation bilaterally Cardio: Rate: regular rate Rhythm: regular rhythm Hear
[2023-02-04] VITALS: PULSE 67
[2023-02-04 04:00] VITALS: PULSE 60
[2023-02-04 05:07] VITALS: BP 143/68; PULSE 57; RESP 18; TEMP 36.5; O2SAT 93
[2023-02-04 06:01] LABS: Basophils Absolute Auto 0.1 K/mm3 (0.0-0.1); Basophils Percent Auto 0.9 % (0.2-1.2); Eosinophils Absolute Auto 0.2 K/mm3 (0-0.3); Eosinophils Percent Auto 2.3 % (0-4.4); Hemoglobin 14.9 g/dL (14.0-18.0); Immature Granulocyte Absolute 0.07 K/mm3 (0.00-0.031); Immature Granulocyte Percent A 0.7 % (0-0.5); Lymphocytes Absolute Auto 1.61 K/mm3 (0.9-3.2); Lymphocytes Percent Auto 16.4 % (18.3-44.2); Mean Corpuscular Hemoglobin 28.8 pg (26-34); Mean Corpuscular Volume 92.8 fl (80-100); Mean Platelet Volume 10.2 fl (7.4-10.4); Monocytes Percent Auto 10.5 % (2.6-8.5); Neutrophils Absolute Auto 6.8 K/mm3 (1.3-6.7); Neutrophils Percent Auto 69.2 % (45.5-73.1); Platelet Count Result 208 k/mm3 (150-375); Red Blood Count 5.17 M/mm3 (4.6-6.20); Red Cell Distribution Width 13.3 % (11.5-14.5); White Blood Count 9.8 K/mm3 (4.5-10.0)
[2023-02-04 06:14] LABS: Alanine Aminotransferase 29 U/L (6-50); Albumin Level 4.6 g/dL (3.5-5.1); Alkaline Phosphatase 77 U/L (38-126); Anion Gap 9 mmol/L (8-16); Aspartate Amino Transferase 23 U/L (17-59); Bilirubin,Total 1.3 mg/dL (0.2-1.3); Blood Urea Nitrogen 24 mg/dL (9-20); Calcium 9.5 mg/dL (8.4-10.2); Carbon Dioxide 34 mmol/L (22-30); Chloride 95 mmol/L (98-107); Estimated CRCL calculation 98 ml/min; Estimated Glomerular Filt Rate > 60; Glucose 146 mg/dL (65-110); Potassium 3.7 mmol/L (3.4-5.0); Sodium 138 mmol/L (137-145)
[2023-02-04 08:00] VITALS: PULSE 63
[2023-02-04] MEDS: SPIRONOLACTONE 25 MG TABLET PO (08:31)
[2023-02-04] MEDS: PANTOPRAZOLE 40 MG TABLET PO (08:31)
[2023-02-04] MEDS: ATORVASTATIN 20 MG TABLET PO (08:31)
[2023-02-04] MEDS: SERTRALINE HCL 50 MG TABLET PO (08:31)
[2023-02-04] MEDS: lisinopriL 20 MG TABLET PO (08:31)
[2023-02-04] MEDS: FUROSEMIDE 40 MG TABLET PO (08:31)
[2023-02-04] MEDS: busPIRone HCL 5 MG TABLET 15 MG PO ×2 (08:31→13:38)
[2023-02-04] MEDS: ENOXAPARIN 40 MG/0.4 ML SYRINGE SUB-Q (08:37)
--- NOTE | 2023-02-04 08:39 | PM.DS ---
DS: Admitting Diagnosis Discharge Date 02/04/23 Admitting Diagnosis Shortness of breath Hypoxia Intermittent asthma Bilateral lower extremity edema Prediabetes hypertension anxiety and depression sleep apnea DS: Discharge Diagnosis Discharge Diagnosis (1) Shortness of breath: Code(s): R06.02 - Shortness of breath Status: Acute (2) Hypoxia: Code(s): R09.02 - Hypoxemia Status: Acute (3) Essential (primary) hypertension: Code(s): I10 - Essential (primary) hypertension Status: Acute (4) Bilateral edema of lower extremity: Code(s): R60.0 - Localized edema Status: Acute (5) Intermittent asthma: Code(s): J45.20 - Mild intermittent asthma, uncomplicated Status: Chronic (6) Suspected sleep apnea: Code(s): R29.818 - Other symptoms and signs involving the nervous system Status: Acute (7) Prediabetes: Code(s): R73.03 - Prediabetes Status: Acute (8) Anxiety and depression: Code(s): F41.9 - Anxiety disorder, unspecified; F32.A - Depression, unspecified Status: Acute DS: Summary Hospital Course Reason for hospitalization: Acute respiratory failure with hypoxia secondary to CHF exacerbation hypertension ELIANA Hospital Course: This is a 67 year old male who presented to the hospital on 01/31/23 with complaints of shortness of breath and leg swelling. Work up in the hospital included a chest x-ray which revealed bilateral perihilar and basilar airspace disease which may represent edema or pneumonia, small pleural effusions. He also had a CTA of the chest which was negative for any acute PE, aortic dissection, or aneurysm. Venous dopplers were completed and was negative for DVT. Labs revealed a proBNP 847, troponin 0.012. He was given IV Lasix for diuresis for few days. While in patient he had an ApneaLink done which shown positive for sleep apnea. He had an echo done to this admission which showed acute decompensated heart failure with preserved ejection fraction greater than 70% with evidence of moderate diastolic dysfunction, mild LVH. Cardiology was consulted on his case and they discontinued his lisinopril/HTCZ and started him on lisinopril 20 mg daily, Lasix 40 mg daily, spironolactone 25 mg daily. Patient is tolerating his medication well. Swelling in his legs have gone down tremendously. States that his shortness of breath is pretty much resolved at rest however he does have some shortness of breath with exertion but he does state that that is much better than previous. His vital signs are stable, he is on room air, he is afebrile. Labs today reveal sodium level 138, potassium 3.7, chloride 95, bicarb 34, BUN 24, creatinine 0.9, liver enzymes are normal, CBC is unremarkable. Patient is stable for discharge at this time. Patient was given scripts for his lisinopril, Lasix, spironolactone. He will need to follow up with his primary care physician within 1 week and get in for a sleep study and implement a cpap considering he has ELIANA. He will also need to follow up with Cardiology in 2 weeks and keep a log of his daily weight and blood pressures. I discussed with him a heart healthy diet and to start a low impact exercise program as tolerated. Patient may benefit from light duty for a month while he transitions on to these new medications as he has a very active job. He was given a note for work at this time and he will was instructed to get [facility] paperwork filled out by his primary care physician for his short-term disability. Final diagnosis: CHF exacerbation Status at Discharge Cognitive/behavioral status at discharge: Alert and oriented x3 Functional status at discharge: independent ambulation Overall status at discharge: patient is not back to baseline Time Spent with Patient Time attestation: Total time spent providing and/or coordinating discharge services: Time spent: Greater than 30 minutes Exam Narrative: General: In n
[2023-02-04] MEDS: FLUTICASONE/SALMETEROL 115-21 MCG INHALER 1 PUFF 2 PUFF INHALATION (08:48)
[2023-02-04 08:52] VITALS: PULSE 63; RESP 14
--- NOTE | 2023-02-04 10:50 | PC.NURSE ---
On 02/04/23, the student, [Dari Garrett], provided care and completed [facility] documentation on this patient. I have reviewed the student's documentation and agree with the findings.
== END 2023-02-04 14:04 | disposition home or self-care (01) | DRG 291 ==
LOC: ANHED 14:41 → ANH2MED 15:06
PROVIDERS: Emergency Medicine; Internal Medicine Cardiovascular Disease; Nurse Practitioner; Admitting Provider Internal Medicine; Emergency Provider Student in an Organized Health Care Education/Training Program; PCP Family Medicine; Visit Provider Nurse Practitioner Acute Care
DX: I11.0 Hypertensive heart disease with heart failure (principal); I50.31 Acute diastolic (congestive) heart failure; I16.0 Hypertensive urgency; R09.02 Hypoxemia; G47.33 Obstructive sleep apnea (adult) (pediatric); J45.20 Mild intermittent asthma, uncomplicated; R73.03 Prediabetes; F41.8 Other specified anxiety disorders; Z20.822 Contact with and (suspected) exposure to COVID-19; E78.5 Hyperlipidemia, unspecified; K58.1 Irritable bowel syndrome with constipation; K21.9 Gastro-esophageal reflux disease without esophagitis; Z68.39 Body mass index [BMI] 39.0-39.9, adult; E66.01 Morbid (severe) obesity due to excess calories
CPT/HCPCS: 36415; 71046; 71275; 80048; 80053; 83036; 83880; 84443; 84484; 85025; 85610; 85730; 87637; 93005; 93970; 94640; 94762; 96374; 96375; 97161; 99285; A9270; C8929; J1650; J1940; J2930; Q9957; Q9967

== ENCOUNTER 2023-04-05 08:14 | Outpatient (CLI) | payer BC, SELFPAY ==
--- NOTE | 2023-04-14 22:38 | WPDSLEEPSTUD ---
Sleep Study Date of Study: 04/05/23 Ordering Provider: Marisol Miner MD Interpreting Physician: Meghna Cunningham MD Sleep Study Type: Split Polysomnogram Height: 1.78 m Weight: 115.666 kg Body Mass Index: 36.6 Neck Circumference (inches): 17.25 [place]: 15 Reason for Sleep Study Hypersomnolence Sleep History Terrance Smith is a 68-year-old man with excessive daytime sleepiness and poor quality of sleep. He has congestive heart failure with preserved ejection for, hypertension, depression and acid reflux; herarely awakens from sleep feeling short of breath. He constantly wakes at night with heartburn, belching or coughing.??He occasional snores, and occasionally snores loudly enough that others complain. He occasionally has trouble sleeping when he has a cold. He rarely wakes up gasping for breath during the night. He occasionally has breathing problems at night. He occasionally sweats excessively at night. He rarely notices his heart pounding or beating irregularly during the night. He occasionally falls asleep during the day. He occasionally falls asleep involuntarily, never falls asleep while driving. He occasionally experiences loss of muscle tone with strong emotion. He occasionally has daytime difficulty at work due to excessive sleepiness. He never feels paralyzed on waking or falling asleep. He never experiences vivid dreams upon waking or falling asleep. He naps feels afraid of going to sleep. He rarely has nightmares. He occasionally recalls his dreams. He occasionally has thoughts racing through his mind. He frequently feels sad or depressed. He frequently feels anxiety. He occasionally notices parts of his body jerk. He occasionally kicks during the night. He occasionally feels crawling or aching feelings in his legs. He occasionally feels leg pain at night. He rarely has morning jaw pain, occasionally grinds his teeth at night. He frequently feels bothered by pain during the day, rarely awakened by pain during the night. He occasionally wakes up feeling stiff in the morning, and he occasionally wakes feeling sore or achy. He occasionally awakens with pain in his neck, spine, or joints. Normal bedtime is 9:00 p.m., falling asleep within 1 hour, waking between 2 and 3 times at night for 30 minutes, watching television while he is awake. Wake time is 5:00 a.m.. He typically gets 5 hours of sleep per night. He takes no naps in the day, however a short nap lasting 10-15 minutes may be refreshing. He is drowsy for 1 hour after waking. He feels better in the morning compared to other times of day. Habits:??Tobacco: never Caffeine: none. Alcohol: none Recreational substances: none PMFSH Past Medical History Medical History Adenomatous colon polyp Anxiety and depression Dyslipidemia Environmental allergies Essential (primary) hypertension GERD without esophagitis Intermittent asthma Irritable bowel syndrome with constipation Prediabetes A1c was 6.1% on 01/14/2023. Unspecified osteoarthritis, unspecified site Surgical History Surgical History No pertinent past surgical history Family History Family History Father Family history of lung cancer Mother Family history of malignant neoplasm of esophagus Social History Social History Social History: Surrogate medical decision maker: Anai Smith, daughter. Code status: Full code. Smoking status: Never smoker Second hand tobacco smoke exposure: No Alcohol intake: current Substance use: never Substance use type: does not use Lack of Transportation: No Lack of Food: Never True Current Housing: I Have Housing Concerned About Future Housing: No Difficulty Paying Gas/Electric Bills: No Difficulty Paying for Meds: No Currently Unem
[2023-04-14 22:54] VITALS: BMI 36.6
== END 2023-04-06 06:28 | disposition home or self-care (01) ==
LOC: ANHCSM 08:27
PROVIDERS: PCP Family Medicine; Visit Provider Family Medicine
DX: G47.33 Obstructive sleep apnea (adult) (pediatric) (principal); G47.10 Hypersomnia, unspecified; I10 Essential (primary) hypertension; F39 Unspecified mood [affective] disorder
CPT/HCPCS: 95811

== ENCOUNTER 2023-04-25 08:42 | Outpatient (CLI) | payer BC, SELFPAY ==
--- NOTE | 2023-05-10 17:54 | WPDSLEEPSTUD ---
Sleep Study Date of Study: 04/25/23 Ordering Provider: Marisol Miner MD Interpreting Physician: Ximena Coates DO Sleep Study Type: BiPAP Titration Height: 1.78 m Weight: 115.666 kg Body Mass Index: 36.6 Neck Circumference (inches): 17.25 [place]: 15 Reason for Sleep Study The patient had a Split study on 04/05/2023 that showed an overall AHI of 46.7 with desaturation down to 86% in the diagnostic portion of the study. He was titrated from CPAP 5 cm H2O to 15 cm H2O with no optimal pressure being found. Sleep History Terrance Smith is a 68-year-old man with excessive daytime sleepiness and poor quality of sleep. He has congestive heart failure with preserved ejection for, hypertension, depression and acid reflux; herarely awakens from sleep feeling short of breath. He?constantly wakes at night with heartburn, belching or coughing.??He? occasional snores, and occasionally snores loudly enough that others complain. He occasionally has trouble sleeping when he has a cold. He rarely wakes up gasping for breath during the night. He occasionally has breathing problems at night. He? occasionally sweats excessively at night. He rarely notices his heart pounding or beating irregularly during the night. He occasionally falls asleep during the day. He occasionally falls asleep involuntarily, never falls asleep while driving. He occasionally experiences loss of muscle tone with strong emotion. He occasionally has daytime difficulty at work due to excessive sleepiness.? He never feels paralyzed on waking or falling asleep. He never experiences vivid dreams upon waking or falling asleep. He naps feels afraid of going to sleep. He rarely has nightmares. He occasionally recalls his dreams. He occasionally has thoughts racing through his mind. He frequently feels sad or depressed. He frequently feels anxiety. He occasionally notices parts of his body jerk. He occasionally kicks during the night. He occasionally feels crawling or aching feelings in his legs. He occasionally feels leg pain at night. He rarely has morning jaw pain, occasionally grinds his teeth at night.? He frequently feels bothered by pain during the day, rarely awakened by pain during the night. He occasionally wakes up feeling stiff in the morning, and he occasionally wakes feeling sore or achy.? He occasionally awakens with pain in his neck, spine, or joints. Normal bedtime is 9:00 p.m., falling asleep within 1 hour, waking between 2 and 3 times at night for 30 minutes, watching television while he is awake. Wake time is? 5:00 a.m.. He typically gets 5 hours of sleep per night. He takes no naps in the day,? however a short nap lasting 10-15 minutes may be refreshing. He is drowsy for 1 hour after waking.? He feels better in the morning compared to other times of day. Habits:??Tobacco: never? ? ? Caffeine: none. ? Alcohol: none ? ? Recreational substances: none [facility] Past Medical History Medical History Adenomatous colon polyp Anxiety and depression Dyslipidemia Environmental allergies Essential (primary) hypertension GERD without esophagitis Intermittent asthma Irritable bowel syndrome with constipation Prediabetes A1c was 6.1% on 01/14/2023. Unspecified osteoarthritis, unspecified site Surgical History Surgical History No pertinent past surgical history Family History Family History Father Family history of lung cancer Mother Family history of malignant neoplasm of esophagus Social History Social History Social History: Surrogate medical decision maker: Anai Smith, daughter. Code status: Full code. Smoking status: Never smoker Second hand tobacco smoke exposure: No Alcohol intake: current Substance use: never Substance use type: does not us
[2023-05-10 18:02] VITALS: BMI 36.6
== END 2023-04-26 06:39 | disposition home or self-care (01) ==
LOC: ANHCSM 08:43
PROVIDERS: PCP Family Medicine; Visit Provider Family Medicine
DX: G47.33 Obstructive sleep apnea (adult) (pediatric) (principal)
CPT/HCPCS: 95811

== ENCOUNTER 2023-06-22 12:41 | Outpatient (CLI) | payer BC, SELFPAY ==
--- NOTE | 2023-06-24 14:44 | WPDPFTINT ---
PFT Procedure Performed PFT Procedure Performed Spirometry with Pre/Post Bronchodilator Plethysmography (Lung Vol) Diffusing Cap (DLCO) Flow Vol Loop PFT Interpretation This is a pulmonary function test with pre and post-bronchodilator spirometry, plethysmography and diffusing capacity. The test was performed and results interpreted in accordance with the 2019 and 2005 ATS/ERS Task Force guidelines respectively using the Global Lung Function Initiative-2012 reference equations. Patient demonstrated good effort and cooperation. Reproducibility criteria were met. The quality of the pre bronchodilator spirometry maneuver was Grade A and post bronchodilator spirometry maneuver was Grade A. Findings: Spirometry: The contour the inspiratory and expiratory flow tracing are normal. The pre bronchodilator FVC is 2.25 L, 51% predicted. The pre bronchodilator FEV1 is 1.65 L, 49% predicted. The pre bronchodilator FEV1: FVC ratio 73%. The post bronchodilator FVC is 2.29 L, representing a 2% increase. The post bronchodilator FEV1 is 1.74 L, representing a 6% increase. The post bronchodilator FEV1: FVC ratio 76%. Plethysmography: The total lung capacity is 3.87 L, 55% predicted. The functional residual capacity is 1.72 L, 47% predicted. The residual volume is 1.62 L, 68% predicted. Diffusing capacity: The diffusing capacity unadjusted for hemoglobin and carboxyhemoglobin is 15.7, 58% predicted. The diffusing capacity adjusted for alveolar volume is 4.96, 122% predicted. Impression: There is a severe restrictive ventilatory abnormality. The spirometry is normal without evidence of an obstructive abnormality. There is no significant improvement after inhaling a single dose of albuterol. The diffusing capacity unadjusted for hemoglobin and carboxyhemoglobin is moderately decreased and normalizes when adjusted for alveolar volume. There are no prior studies for comparison
== END 2023-06-22 12:42 | disposition home or self-care (01) ==
LOC: ANHPFT 12:45
PROVIDERS: PCP Family Medicine; Visit Provider Physician Assistant
DX: R06.02 Shortness of breath (principal); J98.4 Other disorders of lung
CPT/HCPCS: 94060; 94726; 94729

== ENCOUNTER 2023-09-22 07:54 | Outpatient (CLI) | payer BC, SELFPAY ==
--- NOTE | 2023-09-22 20:15 | WPDSIXMINUTE ---
Six Minute Walk Procedure Procedure Performed Pulmonary Stress Test (6 min walk) Six Minute Walk Six Minute Walk: DATE OF SERVICE: 09/22/2023 REQUESTING: Marisol Miner MD REASON FOR TESTING: Dyspnea SIX MINUTE WALK This test was conducted per ATS guidelines. The patient used a wheeled walker. The patient was breathing room air during testing. The initial saturation was 95%, and initial heart rate was 67 beats per minute. The patient walked, stopping for 15 seconds to rest due to shortness of breath, completing 700 ft/213.36 meters. The saturation at the end of testing was 92%, and the heart rate was 99 beats per minute. IMPRESSION: This is a normal study. The patient did not require supplemental oxygen with exertion. The distance walked is less than expected for age. Meghna Cunningham MD
== END 2023-09-22 07:55 | disposition home or self-care (01) ==
PROVIDERS: PCP Family Medicine; Visit Provider Family Medicine
DX: R06.00 Dyspnea, unspecified (principal)
CPT/HCPCS: 94618

== ENCOUNTER 2024-01-31 09:30 | Outpatient (RCR) | payer BC, SELFPAY ==
[2023-10-04 12:11] VITALS: PULSE 76
== END 2024-01-31 23:59 | disposition home or self-care (01) ==
LOC: ANHCPREHAB 09:30
PROVIDERS: PCP Family Medicine; Visit Provider Family Medicine
DX: J45.909 Unspecified asthma, uncomplicated (principal)
CPT/HCPCS: 94625

== ENCOUNTER 2024-02-22 12:57 | Outpatient (CLI) | payer BC, SELFPAY ==
--- NOTE | 2024-02-23 08:06 | WPDSIXMINUTE ---
Six Minute Walk Procedure Procedure Performed Pulmonary Stress Test (6 min walk) Six Minute Walk Six Minute Walk: This is a 6 minute walk test. The test was performed and interpreted in accordance with the 2014 ERS/ATS task force guidelines. Of note, patient used a wheeled walker. Findings: The patient's resting room air oxygen saturation measured by pulse oximetry was 96%, the heart rate was 57 bpm, and the modified Alexandra dyspnea score was 2. Patient ambulated for 122 meters and oxygen saturation remained 94 to 95%. At the end of the study the heart rate was 87 bpm and the modified Alexandra dyspnea score was 6. The patient did not qualify for supplemental oxygen at rest or with ambulation. There are no prior studies for comparison.
== END 2024-02-22 12:58 | disposition home or self-care (01) ==
PROVIDERS: PCP Family Medicine; Visit Provider Family Medicine
DX: J44.9 Chronic obstructive pulmonary disease, unspecified (principal)
CPT/HCPCS: 94618